=== PATIENT | male | born 1960 | race Caucasian/White ===

== ENCOUNTER 2021-09-22 02:58 | Inpatient (IN) | payer OTHER, SELFPAY ==
[2021-09-22] VITALS (8 sets, daily range): BP systolic 102–140; BP diastolic 57–75; PULSE 76–108; RESP 15–20; TEMP 35.8–37.7; O2SAT 93–98; BMI 25.8
--- NOTE | ~2021-09-22 | CT_ITS ---
EXAMINATION: CT ABDOMEN AND PELVIS WITH CONTRAST CLINICAL INFORMATION: Pain. Dysuria 3 weeks. COMPARISON: None TECHNIQUE: Multidetector volumetric images were obtained from the superior aspect of the liver through the pubic symphysis following administration 85 mL of Omnipaque 350 intravenous contrast. Sagittal and coronal reformatted images were obtained on the technologist's workstation. Oral contrast: No This CT examination was performed using dose optimization techniques as appropriate, variously including the following: *Automated exposure control *Adjustment of mA and/or kV according to patient size (this includes techniques or standardized protocols for targeted exams where dose is matched to indication/reason for exam; i.e. extremities or head) *Use of iterative reconstruction technique DLP: 554 mGy-cm FINDINGS: LUNG BASES: The visualized lung bases are unremarkable. LIVER, GALLBLADDER, AND BILIARY TREE: The liver is normal in size, shape, and attenuation. No focal hepatic lesion or biliary ductal dilatation is present. Gallbladder unremarkable. PANCREAS: Unremarkable. SPLEEN: Unremarkable. ADRENAL GLANDS: Unremarkable. KIDNEYS AND URETERS: The kidneys are normal in size, shape, and attenuation. There is a 5.3 cm simple cyst which is benign and requires no further follow-up. No hydronephrosis, hydroureter, or calculi seen. No perinephric stranding. BLADDER: Unremarkable. GASTROINTESTINAL TRACT: Small sliding-type hiatal hernia. The small and large bowel are unremarkable. The appendix is unremarkable. ABDOMINAL WALL: Small fat-containing umbilical hernia. Small bilateral fat-containing direct hernias, more pronounced on the left. LYMPH NODES: Normal. VASCULAR: Unremarkable. PELVIC VISCERA: Prostate is moderately enlarged measuring up to 5.3 cm transversely. There is fat stranding about the prostate and seminal vesicles (see mena images). OSSEOUS STRUCTURES: No acute or suspicious osseous abnormalities. CT/CT abdomen pelvis w con IMPRESSION: * There are are mild inflammatory changes about the prostate and seminal vesicles suggestive of prostatitis. * Moderate prostatomegaly.
[2021-09-22 03:32] LABS: Appearance Urine HAZY; Glucose Urine UA NEG (NEG); Leukocyte Esterase Urine 3+ (NEG); Nitrite Urine POS (NEG); PH 5.5 (5.0-8.0); UACC Culture Trigger YES; Urine Blood TRACE (NEG); Urine Ketones NEG (NEG); Urine Protein 1+ MG/DL (NEG-TRACE)
[2021-09-22 03:33] LABS: Color Urine ORANGE
[2021-09-22 03:39] LABS: Bacteria Urine 4+ /LPF; Mucus Urine 2+ /LPF; Squamous Epithelial Cell Urine 1+ /LPF
[2021-09-22 03:47] LABS: COVID-19 Test Negative (Negative); IDNOW Serial# 16C4AD1C; Influenza A Negative (Negative); Influenza B2 Negative (Negative)
[2021-09-22 04:52] LABS: Basophils Percent Auto 0.2 % (0-2); Eosinophils Absolute Auto 0.1 X10*3/uL (0.0-0.4); Eosinophils Percent Auto 0.8 % (0-4); Hematocrit 32.8 % (42.0-52.0); Imm Gran Abs Auto 0.04 X10*3/uL (0.00-0.03); Imm Gran Pct Auto 0.3 % (0.0-0.4); Lymphocytes Absolute Auto 0.6 X10*3/uL (1.2-4.9); Lymphocytes Percent Auto 4.6 % (20-40); MANUAL DIFF FLAG SCAN; Mean Corpuscular HGB Conc 33.5 g/dl (31.0-36.0); Mean Corpuscular Hemoglobin 28.3 pg (27.0-33.0); Mean Corpuscular Volume 84.3 fL (80.0-98.0); Mean Platelet Volume 9.9 fL (9.4-12.4); Monocytes Absolute Auto 0.4 X10*3/uL (0.1-1.2); Neutrophils Absolute Auto 11.4 x10*3/uL (2.0-8.3); Neutrophils Percent Auto 91.1 % (45-73); Platelet Count 297 X10*3/uL (160-400); Red Blood Count 3.89 X10*6/uL (4.60-5.80); Red Cell Distribution Width 14.6 % (11.0-16.0); SCAN SMEAR FLAG 1; White Blood Count 12.5 X10*3/uL (4.8-10.8)
[2021-09-22 04:55] LABS: SLIDE REVIEW VERIFIED
--- NOTE | 2021-09-22 04:57 | ED_ITS ---
HPI - Male Genitourinary General Chief complaint: Urogenital-Male Stated complaint: not sleeping well, fatigue Time Seen by Provider: 09/22/21 04:03 Source: patient and family ( ) Mode of arrival: ambulatory History of Present Illness HPI Narrative: 61-year-old male with history and clinical presentation dysuria for approximately 3 weeks after patient had a Harris catheter placed. Patient has been on 3 different medications without complete resolution and has once again developed fever with T-max of 102 degrees as well as chills and nausea and continued dysuria. Related Data Allergies Allergy/AdvReac Type Severity Reaction Status Date / Time No Known Allergies Allergy Verified 09/22/21 03:28 Review of Systems Review of Systems: Pertinent positives and negatives as stated in HPI 10 point review of systems is otherwise negative PMFSH Past Medical History Source: nursing notes reviewed Physical Exam Vital Signs: Vital Signs: Last Vital Signs Temp 96.5 F L 09/22/21 03:29 Pulse 108 H 09/22/21 03:29 Resp 20 09/22/21 03:29 BP 138/70 09/22/21 03:29 Pulse Ox 98 09/22/21 03:29 O2 Del Method 09/22/21 03:29 BMI result Body Mass Index 25.8 VITAL SIGNS: Reviewed. GENERAL: Well developed, well nourished, in no acute distress. HEAD: Normocephalic/atraumatic EYES: PERRLA, EOMI EARS: Ext canals without abnormality OROPHARYNX: no oral lesions noted, posterior pharynx clear LUNGS: Normal breath sounds. No adventitious sounds or accessory muscle use. SpO2<98> CARDIOVASCULAR: Regular rate and rhythm without noted murmurs ABDOMEN: Soft, non-tender, non-distended with bowel sounds, no CVA tenderness. MUSCULOSKELETAL: No tenderness, deformities, or effusions noted on gross inspection. EXTREMITIES: No cyanosis, clubbing or edema. SKIN: Inspection of the skin reveals no rashes NEUROLOGIC: Alert and oriented x 4. Strength and sensation to light touch were grossly intact x 4. Course Course Course Narrative: 0445: I suspect infection. 61-year-old male with history and clinical present ation consistent with clinical diagnosis of pyelonephritis, and has been on 3 different medications and attempt to eradicate the urinary tract infection without success. on review of all investigations patient's urine is infected, he has a leukocytosis, he is experiencing chills and will receive IV fluids, antiemetic, antibiotics and be admitted. patient and were informed of all investigations. I discussed this case with the inpatient hospitalist who recommends CT scan but agrees with admission. MDM - Male Genitourinary Lab Data Result diagrams: 09/22/21 04:45 09/22/21 04:45 Labs: Lab Results 09/22/21 09/22/21 09/22/21 Range/Units 03:22 03:23 03:23 WBC (4.8-10.8) X10*3/uL RBC (4.60-5.80) X10*6/uL Hgb (14.0-18.0) g/dl Hct (42.0-52.0) % MCV (80.0-98.0) fL MCH (27.0-33.0) pg MCHC (31.0-36.0) g/dl RDW (11.0-16.0) % Plt Count (160-400) X10*3/uL MPV (9.4-12.4) fL Immature Gran % (Auto) (0.0-0.4) % Neut % (Auto) (45-73) % Lymph % (Auto) (20-40) % [place] % (Auto) (2-11) % Eos % (Auto) (0-4) % Baso % (Auto) (0-2) % Lymph # (Auto) (1.2-4.9) X10*3/uL [place] # (Auto) (0.1-1.2) X10*3/uL Eos # (Auto) (0.0-0.4) X10*3/uL Baso # (Auto) (0.0-0.2) X10*3/uL Abs Immat Gran (auto) (0.00-0.03) X10*3/uL Absolute Neuts (auto) (2.0-8.3) x10*3/uL Absolute Nucleated RBC (0.0-0.012) X10*3/uL Nucleated RBC % (auto) (0.0-0.2) /100WBC Smear Tech's Comments Sodium (135-145) mmol/L Potassium (3.3-5.1) mmol/L Chloride (96-108) mmol/L Carbon Dioxide (22-29) mmol/L Anion Gap (12-20) BUN (9-16) mg/dL Creatinine (0.5-1.4) mg/dL Estim Creat Clear Calc Estimated GFR Random Glucose (60-115) mg/dL Lactic Acid (0.5-2.0) mmol/L Calcium (8.4-10.2) mg/dL Total Bilirubin (0.0-1.0) mg/dL AST (5-37) U/L ALT (0-40) U/L Alkaline Phosphatase (39-117) U/L Total Protein (6.5-8.0) g/dL Albumin (3.5-5.0) g/dL Urine Color ORANGE A Urine Appearance HAZY Urine pH 5.5 (5.0-8.0) Ur Specific [place] 1.010 (1.005-1.025) Urine Protein 1+ H (NEG-TRACE) MG/DL Urine Glucose (UA) NEG (NEG) MG/DL Urine Ketones NEG (NEG) MG/DL Urine Blood TRACE (NEG) Urine Nitrite POS H (NEG) Ur Leukocyte Esterase 3+ H (NEG) Urine RBC 1-4 (0) /HPF Urine WBC 76-150 H (0-4) /HPF Ur Squamous Epith Cells 1+ /LPF Urine Bacteria 4+ /LPF Urine Mucus 2+ /LPF COVID-19 (YAMIL) Negative (Negative) COVID-19 Clin Com See Note Influenza Type A (WINNIE) Negative (Negative) Influenza Type B (WINNIE) Negative (Negative) Influenza A & B Note See Note 09/22/21 09/22/21 09/22/21 Range/Units 04:45 04:45 04:45 WBC 12.5 H (4.8-10.8) X10*3/uL RBC 3.89 L (4.60-5.80) X10*6/uL Hgb 11.0 L (14.0-18.0) g/dl Hct 32.8 L (42.0-52.0) % MCV 84.3 (80.0-98.0) fL MCH 28.3 (27.0-33.0) pg MCHC 33.5 (31.0-36.0) g/dl RDW 14.6 (11.0-16.0) % Plt Count 297 (160-400) X10*3/uL MPV 9.9 (9.4-12.4) fL Immature Gran % (Auto) 0.3 (0.0-0.4) % Neut % (Auto) 91.1 H (45-73) % Lymph % (Auto) 4.6 L (20-40) % [place] % (Auto) 3.0 (2-11) % Eos % (Auto) 0.8 (0-4) % Baso % (Auto) 0.2 (0-2) % Lymph # (Auto) 0.6 L (1.2-4.9) X10*3/uL [place] # (Auto) 0.4 (0.1-1.2) X10*3/uL Eos # (Auto) 0.1 (0.0-0.4) X10*3/uL Baso # (Auto) 0.0 (0.0-0.2) X10*3/uL Abs Immat Gran (auto) 0.04 H (0.00-0.03) X10*3/uL Absolute Neuts (auto) 11.4 H (2.0-8.3) x10*3/uL Absolute Nucleated RBC 0.000 (0.0-0.012) X10*3/uL Nucleated RBC % (auto) 0.0 (0.0-0.2) /100WBC Smear Tech's Comments VERIFIED Sodium 134 L (135-145) mmol/L Potassium 4.0 (3.3-5.1) mmol/L Chloride 102 (96-108) mmol/L Carbon Dioxide 22 (22-29) mmol/L Anion Gap 14 (12-20) BUN 13 (9-16) mg/dL Creatinine 1.16 (0.5-1.4) mg/dL Estim Creat Clear Calc 58.8 Estimated GFR > 60 Random Glucose 118 H (60-115) mg/dL Lactic Acid 1.3 (0.5-2.0) mmol/L Calcium 9.1 (8.4-10.2) mg/dL Total Bilirubin 1.2 H (0.0-1.0) mg/dL AST 19 (5-37) U/L ALT 22 (0-40) U/L Alkaline Phosphatase 156 H (39-117) U/L Total Protein 6.7 (6.5-8.0) g/dL Albumin 4.2 (3.5-5.0) g/dL Urine Color Urine Appearance Urine pH (5.0-8.0) Ur Specific [place] (1.005-1.025) Urine Protein (NEG-TRACE) MG/DL Urine Glucose (UA) (NEG) MG/DL Urine Ketones (NEG) MG/DL Urine Blood (NEG) Urine Nitrite (NEG) Ur Leukocyte Esterase (NEG) Urine RBC (0) /HPF Urine WBC (0-4) /HPF Ur Squamous Epith Cells /LPF Urine Bacteria /LPF Urine Mucus /LPF COVID-19 (YAMIL) (Negative) COVID-19 Clin Com Influenza Type A (WINNIE) (Negative) Influenza Type B (WINNIE) (Negative) Influenza A & B Note Discharge Plan Discharge Clinical Impression: Sepsis, Pyelonephritis Patient Disposition: Admitted As Inpatient
[2021-09-22 05:09] LABS: Lactic Acid 1.3 mmol/L (0.5-2.0)
[2021-09-22] MEDS: ondansetron HCL 4 MG/2 ML VIAL IVPUSH (05:09)
[2021-09-22] MEDS: 0.9 % Sodium Chloride 1,000 ML 999 ML IV (05:12)
[2021-09-22] MEDS: cefTRIAXone sodium 1 GM in 0.9 % Sodium Chloride 50 ML IV (05:12)
[2021-09-22 05:15] LABS: Alanine Aminotransferase 22 U/L (0-40); Albumin Level 4.2 g/dL (3.5-5.0); Alkaline Phosphatase 156 U/L (39-117); Anion Gap 14 (12-20); Aspartate Amino Transferase 19 U/L (5-37); Bilirubin Total 1.2 mg/dL (0.0-1.0); Blood Urea Nitrogen 13 mg/dL (9-16); Calcium 9.1 mg/dL (8.4-10.2); Carbon Dioxide 22 mmol/L (22-29); Chloride 102 mmol/L (96-108); Creatinine Clr Calc Pharmacy 58.8; Estimated Glomerular Filt Rate > 60; Glucose Random 118 mg/dL (60-115); Sodium 134 mmol/L (135-145); Total Protein 6.7 g/dL (6.5-8.0)
[2021-09-22] MEDS: Acetaminophen 325 MG TABLET 975 MG PO (05:22)
[2021-09-22] MEDS: iohexoL 350 MG/ML 100 ML INFUS..BTL IV (05:45)
--- NOTE | 2021-09-22 06:46 | PM.IMHP ---
History of Present Illness Date of Service: 09/22/21 Chief Complaint: burning on urinatuion 61-year-old male with past medical history of hyperlipidemia and BPH who presents to the hospital with complaints of urinary frequency as well as burning on urination. Patient reports that in August 14 he had a partial knee replacement for which she reported urinary catheter for urinary retention there was removed few days after surgery. He reports ever since removing the urinary catheter his started having pain and urination, he was initially treated with Bactrim on September 01, x 7 days, continued having symptoms therefore was switched to nitrofurantoin for 5 days based on cultures, with persistent symptoms, he was then changed to cefdroxil for 7 days which helped improve his symptoms significantly by day 7. He reports that the last abx improved his symptoms but once he finished his anbx his symptoms returned. He had a fever of 102 last night, with N/no vomiting. No CP, no SOB, no abd pain, no diarrhea, no constipation, no lower extremity edema. No headache or change in vision. on arrival to the ED patient found to have a temperature of 96.5 degrees, heart rate of 108, Labs are significant for WBC count of 12.5, hemoglobin of 11, hematocrit of today to any, sodium 134, UA positive for nitrites, leukocyte Estrace, and urine WBC Abdominal pelvic CT shows there are mild inflammatory changes prostate and seminal vesicles suggestive of prostatitis and moderate prostatomegaly Patient started on IV antibiotics and will be admitted for further management Review of Systems Review of Systems: Yes all other systems are reviewed and are negative [facility] Medical History (Updated 09/22/21 @ 07:04 by Reji Tomlinson MD) BPH (benign prostatic hyperplasia) HLD (hyperlipidemia) Family History (Updated 09/22/21 @ 07:04 by Reji Tomlinson MD) Other No family history of coronary artery disease Surgical History (Updated 09/22/21 @ 07:04 by Reji Tomlinson MD) History of knee surgery Social History Advance Directives: No Advance Directives Information Provided: Yes Meds Allergies Allergy/AdvReac Type Severity Reaction Status Date / Time No Known Allergies Allergy Verified 09/22/21 03:28 Active Medications: Current Medications Pharmacy Consult (Consult Rx Perform Med Rec) 1 each MISCELLANE ONCE PRN PRN Reason: Consult order Home Medications Medication Instructions Recorded Confirmed Last Taken Type atorvastatin 40 mg tablet 1 tab PO DAILY 09/22/21 09/22/21 Unknown History bupropion HCl 150 mg 24 hr tablet, 1 tab PO DAILY 09/22/21 09/22/21 Unknown History extended release bupropion HCl 300 mg 24 hr tablet, 1 tab PO DAILY 09/22/21 09/22/21 Unknown History extended release lorazepam 0.5 mg tablet 1 tab PO Q6H PRN anxiety 09/22/21 09/22/21 Unknown History omeprazole 20 mg capsule,delayed 2 cap PO BID 09/22/21 09/22/21 Unknown History release tamsulosin 0.4 mg capsule 2 cap PO BEDTIME 09/22/21 09/22/21 Unknown History Physical Exam Vital Signs and Narrative: Vital Signs: Last Vital Signs Temp 99.8 F 09/22/21 06:25 Pulse 86 09/22/21 06:25 Resp 15 09/22/21 06:25 BP 138/70 09/22/21 03:29 Pulse Ox 98 09/22/21 03:29 O2 Del Method 09/22/21 03:29 BMI result Body Mass Index 25.8 Results Labs CBC and Chem 7: 09/22/21 04:45 09/22/21 04:45 Labs: Laboratory Results - last 24 hr 09/22/21 09/22/21 09/22/21 03:22 03:23 03:23 MCV MCH MCHC RDW Plt Count MPV Immature Gran % (Auto) Neut % (Auto) Lymph % (Auto) [place] % (Auto) Eos % (Auto) Baso % (Auto) Lymph # (Auto) [place] # (Auto) Eos # (Auto) Baso # (Auto) Abs Immat Gran (auto) Absolute Neuts (auto) Absolute Nucleated RBC Nucleated RBC % (auto) Smear Tech's Comments Anion Gap Estim Creat Clear Calc Estimated GFR Random Glucose Lactic Acid Calcium Total Bilirubin AST ALT Alkaline Phosphatase Total Protein Albumin Urine Color ORANGE A Urine Appearance HAZY Urine pH 5.5 Ur Specific [place] 1.010 Urine Protein 1+ H Urine Glucose (UA) NEG Urine Ketones NEG Urine Blood TRACE Urine Nitrite POS H Ur Leukocyte Esterase 3+ H Urine RBC 1-4 Urine WBC 76-150 H Ur Squamous Epith Cells 1+ Urine Bacteria 4+ Urine Mucus 2+ COVID-19 (YAMIL) Negative COVID-19 Clin Com See Note Influenza Type A (WINNIE) Negative Influenza Type B (WINNIE) Negative Influenza A & B Note See Note 09/22/21 09/22/21 09/22/21 04:45 04:45 04:45 MCV 84.3 MCH 28.3 MCHC 33.5 RDW 14.6 Plt Count 297 MPV 9.9 Immature Gran % (Auto) 0.3 Neut % (Auto) 91.1 H Lymph % (Auto) 4.6 L [place] % (Auto) 3.0 Eos % (Auto) 0.8 Baso % (Auto) 0.2 Lymph # (Auto) 0.6 L [place] # (Auto) 0.4 Eos # (Auto) 0.1 Baso # (Auto) 0.0 Abs Immat Gran (auto) 0.04 H Absolute Neuts (auto) 11.4 H Absolute Nucleated RBC 0.000 Nucleated RBC % (auto) 0.0 Smear Tech's Comments VERIFIED Anion Gap 14 Estim Creat Clear Calc 58.8 Estimated GFR > 60 Random Glucose 118 H Lactic Acid 1.3 Calcium 9.1 Total Bilirubin 1.2 H AST 19 ALT 22 Alkaline Phosphatase 156 H Total Protein 6.7 Albumin 4.2 Urine Color Urine Appearance Urine pH Ur Specific [place] Urine Protein Urine Glucose (UA) Urine Ketones Urine Blood Urine Nitrite Ur Leukocyte Esterase Urine RBC Urine WBC Ur Squamous Epith Cells Urine Bacteria Urine Mucus COVID-19 (YAMIL) COVID-19 Clin Com Influenza Type A (WINNIE) Influenza Type B (WINNIE) Influenza A & B Note Imaging Radiologist's Impressions: Impressions Abdomen/Pelvis CT 09/22/21 05:50 IMPRESSION: * There are are mild inflammatory changes about the prostate and seminal vesicles suggestive of prostatitis. * Moderate prostatomegaly. Assessment and Plan (1) Prostatitis: Status: Acute Plan 61-year-old male with a history of BPH presents the hospital with urinary frequency and dysuria found to have prostatitis # prostatitis - failed outpatient therapy probably not because resistant but likely due to duration - will treat with levofloxacin IV pending cultures - IV fluids # BPH - continue Flomax - has no retention at this time # hyperlipidemia - continue statin DVT prophylaxis: Lovenox Given failed outpatient therapy time is 3 around patient will require a minimal tonight hospital stay for further management and treatment Quality Stroke Does the patient have a stroke diagnosis?: No VTE Prior VTE?: No VTE Risk Level:: Medical - moderate - high VTE Device Contraindication: Treatment Not Indicated VTE Drug Contraindication: N/A - Med Ordered
[2021-09-22] MEDS: Enoxaparin Sodium 40 MG/0.4 ML SYRINGE SUBCUT (07:18)
[2021-09-22] MEDS: levoFLOXacin/D5W 750 MG/150 ML PIGGYBACK 100 MG IV (07:26)
--- NOTE | 2021-09-22 07:29 | PHA.MEDREC ---
Pharmacy Consult ? Medication Reconciliation Pharmacy has reviewed the medication reconciliation completed by Dennys. There are no remarkble issues for provider's attention. Shanon ferreira, AdrainaD
--- NOTE | 2021-09-22 08:43 | HO.PM.IMPN ---
Subjective Subjective Date of Service: 09/22/21 Interval History: cc: fever, chills, dysuria, urinary frequency interval history: afebrile this morning, still with urinary frequency Cardiovascular Cardiovascular: Reports no additional cardiovascular complaints Respiratory Respiratory: Reports no additional respiratory complaints Physical Exam Vital Signs: Vital Signs: Last Vital Signs Temp 99.3 F 09/22/21 07:28 Pulse 100 09/22/21 07:15 Resp 16 09/22/21 07:15 BP 121/68 09/22/21 07:15 Pulse Ox 93 09/22/21 07:15 O2 Del Method 09/22/21 07:15 BMI result Body Mass Index 25.8 General: AO X 3, no acute distress Resp: CTA bilateral, no accessory muscles used CVS: S1,S2,RRR GI: soft, non tender, non distended Neuro: motor grossly intact, alert Psych: appropriate affect, appropriate insight left knee surgical site: some warmth, but no erythema, minimal edema, good ROM, appears to be healing well Objective Data Active Medications Acetaminophen (Acetaminophen 325 Mg Tablet) 650 mg PO Q6H PRN PRN Reason: Pain, Mild (Pain Scale 1-3) Atorvastatin Calcium (Atorvastatin Calcium 40 Mg Tablet) 40 mg PO DAILY [facility] Last Admin: 09/22/21 08:39 Dose: Not Given Documented By: LEBRON Non-Admin Reason: pt took own med Bupropion HCl (Bupropion Hcl Xl 300 Mg Tab.Er.24h) 300 mg PO DAILY [facility] Last Admin: 09/22/21 08:39 Dose: Not Given Documented By: LEBRON Non-Admin Reason: pt took own med Bupropion HCl (Bupropion Hcl Xl 150 Mg Tab.Er.24h) 150 mg PO DAILY [facility] Last Admin: 09/22/21 08:39 Dose: Not Given Documented By: LEBRON Non-Admin Reason: pt took own med Docusate Sodium (Docusate Sodium 100 Mg Capsule) 100 mg PO DAILY PRN PRN Reason: Constipation Enoxaparin Sodium (Enoxaparin Sodium 40 Mg/0.4 Ml Syringe) 40 mg SUBCUT Q24H [facility] Last Admin: 09/22/21 07:18 Dose: 40 mg Documented By: MARIBEL Levofloxacin (Levaquin) 750 mg in 150 mls @ 100 mls/hr IV Q24H [facility] Last Admin: 09/22/21 07:26 Dose: 100 mls/hr Documented By: MARIBEL Lorazepam (Lorazepam 0.5 Mg Tablet) 0.5 mg PO Q6H PRN PRN Reason: anxiety Omeprazole (Omeprazole 40 Mg Capsule.Dr) 40 mg PO BID@0630,1600 [facility] Last Admin: 09/22/21 08:39 Dose: Not Given Documented By: LEBRON Non-Admin Reason: pt took home med Ondansetron HCl (Ondansetron Hcl 4 Mg/2 Ml Vial) 4 mg IVPUSH Q8H PRN PRN Reason: Nausea and Vomiting Pharmacy Consult (Consult Rx Perform Med Rec) 1 each MISCELLANE ONCE PRN PRN Reason: Consult order Phenazopyridine HCl (Phenazopyridine Hcl 200 Mg Tablet) 200 mg PO TID PRN PRN Reason: dysuria Stop: 09/24/21 08:42 Sodium Chloride (0.9 % Sodium Chloride Flush 3 Ml Syringe) 3 ml IVFLUSH QSHIFT [facility] Last Admin: 09/22/21 07:18 Dose: Not Given Documented By: MARIBEL Non-Admin Reason: IV Running Tamsulosin HCl (Tamsulosin Hcl 0.4 Mg Capsule) 0.8 mg PO BEDTIME [facility] Labs CBC & Chem 7: 09/22/21 04:45 09/22/21 04:45 Labs: Laboratory Results - last 24 hr 09/22/21 09/22/21 09/22/21 03:22 03:23 03:23 MCV MCH MCHC RDW Plt Count MPV Immature Gran % (Auto) Neut % (Auto) Lymph % (Auto) [place] % (Auto) Eos % (Auto) Baso % (Auto) Lymph # (Auto) [place] # (Auto) Eos # (Auto) Baso # (Auto) Abs Immat Gran (auto) Absolute Neuts (auto) Absolute Nucleated RBC Nucleated RBC % (auto) Smear Tech's Comments Anion Gap Estim Creat Clear Calc Estimated GFR Random Glucose Lactic Acid Calcium Total Bilirubin AST ALT Alkaline Phosphatase Total Protein Albumin Urine Color ORANGE A Urine Appearance HAZY Urine pH 5.5 Ur Specific [place] 1.010 Urine Protein 1+ H Urine Glucose (UA) NEG Urine Ketones NEG Urine Blood TRACE Urine Nitrite POS H Ur Leukocyte Esterase 3+ H Urine RBC 1-4 Urine WBC 76-150 H Ur Squamous Epith Cells 1+ Urine Bacteria 4+ Urine Mucus 2+ COVID-19 (YAMIL) Negative COVID-19 Clin Com See Note Influenza Type A (WINNIE) Negative Influenza Type B (WINNIE) Negative Influenza A & B Note See Note 09/22/21 09/22/21 09/22/21 04:45 04:45 04:45 MCV 84.3 MCH 28.3 MCHC 33.5 RDW 14.6 Plt Count 297 MPV 9.9 Immature Gran % (Auto) 0.3 Neut % (Auto) 91.1 H Lymph % (Auto) 4.6 L [place] % (Auto) 3.0 Eos % (Auto) 0.8 Baso % (Auto) 0.2 Lymph # (Auto) 0.6 L [place] # (Auto) 0.4 Eos # (Auto) 0.1 Baso # (Auto) 0.0 Abs Immat Gran (auto) 0.04 H Absolute Neuts (auto) 11.4 H Absolute Nucleated RBC 0.000 Nucleated RBC % (auto) 0.0 Smear Tech's Comments VERIFIED Anion Gap 14 Estim Creat Clear Calc 58.8 Estimated GFR > 60 Random Glucose 118 H Lactic Acid 1.3 Calcium 9.1 Total Bilirubin 1.2 H AST 19 ALT 22 Alkaline Phosphatase 156 H Total Protein 6.7 Albumin 4.2 Urine Color Urine Appearance Urine pH Ur Specific [place] Urine Protein Urine Glucose (UA) Urine Ketones Urine Blood Urine Nitrite Ur Leukocyte Esterase Urine RBC Urine WBC Ur Squamous Epith Cells Urine Bacteria Urine Mucus COVID-19 (YAMIL) COVID-19 Clin Com Influenza Type A (WINNIE) Influenza Type B (WINNIE) Influenza A & B Note Assessment and Plan (1) Sepsis: Status: Acute (2) Prostatitis: Status: Acute Plan 61M presented with dysuria, fevers, chills sepsis (leukocytosis, tachycardia) due to acute prostatitis in patient with BPH urine culture from [facility] showed ecoli sensitive to levaquin continue IV levaquin, follow up urine and blood cultures once afebrile and cultures back would switch to po will likely need longer duration of therapy, about 14 days, preferably fluoroquinolone if sensitive continue flomax 0.8mg daily for BPH and follow up outpatient with urology pyridium prn GERD with burgos's esophagus continue omeprazole 40mg po bid hld lipitor mood disorder stable continue buproprion ativan prn dvt prophylaxis - lovenox full code reason for continued hospitalization: awaiting cultures and sensitivities as well as defervescence Quality Stroke Does the patient have a stroke diagnosis?: No VTE Prior VTE?: No VTE Risk Level:: Medical - moderate - high VTE Device Contraindication: Treatment Not Indicated VTE Drug Contraindication: N/A - Med Ordered
--- NOTE | 2021-09-22 09:02 | MHC.CM.PN ---
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 Home, self care is the goal and CM has initiated and will follow for dc planning. Patient has received [email or web address] vax X3 and the PCP is DR. Charles Campbell.
[2021-09-22] MEDS: Ibuprofen 400 MG TABLET PO ×2 (09:46→15:57)
[2021-09-22] MEDS: Phenazopyridine HCL 200 MG TABLET PO (09:47)
[2021-09-22] MEDS: Acetaminophen 325 MG TABLET 650 MG PO ×2 (11:19→17:53)
[2021-09-22] MEDS: 0.9 % Sodium Chloride Flush 3 ML SYRINGE IVFLUSH (15:55)
[2021-09-22] MEDS: Omeprazole 40 MG CAPSULE.DR PO (15:58)
[2021-09-22] MEDS: Tamsulosin HCL 0.4 MG CAPSULE 0.8 MG PO (20:58)
[2021-09-23] VITALS (7 sets, daily range): BP systolic 99–140; BP diastolic 58–76; PULSE 75–95; RESP 15–20; TEMP 36.1–37.5; O2SAT 95–97
[2021-09-23] MEDS: 0.9 % Sodium Chloride Flush 3 ML SYRINGE IVFLUSH ×4 (00:19→21:03)
[2021-09-23 06:10] LABS: MANUAL DIFF FLAG NO
[2021-09-23 06:16] LABS: Basophils Percent Auto 0.5 % (0-2); Eosinophils Percent Auto 0.2 % (0-4); Hematocrit 32.6 % (42.0-52.0); Hemoglobin 10.4 g/dl (14.0-18.0); Imm Gran Abs Auto 0.05 X10*3/uL (0.00-0.03); Imm Gran Pct Auto 0.8 % (0.0-0.4); Lymphocytes Absolute Auto 0.6 X10*3/uL (1.2-4.9); Lymphocytes Percent Auto 9.3 % (20-40); Mean Corpuscular HGB Conc 31.9 g/dl (31.0-36.0); Mean Corpuscular Hemoglobin 28.1 pg (27.0-33.0); Mean Corpuscular Volume 88.1 fL (80.0-98.0); Mean Platelet Volume 10.3 fL (9.4-12.4); Monocytes Absolute Auto 0.3 X10*3/uL (0.1-1.2); Monocytes Percent Auto 5.4 % (2-11); Neutrophils Percent Auto 83.8 % (45-73); Platelet Count 219 X10*3/uL (160-400); Red Cell Distribution Width 14.9 % (11.0-16.0); White Blood Count 5.9 X10*3/uL (4.8-10.8)
[2021-09-23] MEDS: Enoxaparin Sodium 40 MG/0.4 ML SYRINGE SUBCUT (06:27)
[2021-09-23] MEDS: Omeprazole 40 MG CAPSULE.DR PO ×2 (06:28→17:10)
[2021-09-23 06:48] LABS: Anion Gap 11 (12-20); Blood Urea Nitrogen 11 mg/dL (9-16); Calcium 8.4 mg/dL (8.4-10.2); Carbon Dioxide 24 mmol/L (22-29); Chloride 108 mmol/L (96-108); Creatinine Clr Calc Pharmacy 59.3; Estimated Glomerular Filt Rate > 60; Glucose Fasting 94 mg/dL (60-99); Potassium 4.2 mmol/L (3.3-5.1); Sodium 139 mmol/L (135-145)
[2021-09-23] MEDS: Atorvastatin Calcium 40 MG TABLET PO (08:52)
[2021-09-23] MEDS: levoFLOXacin/D5W 750 MG/150 ML PIGGYBACK 100 MG IV (08:52)
[2021-09-23] MEDS: buPROPion HCl XL 150 MG TAB.ER.24H PO (08:52)
[2021-09-23] MEDS: buPROPion HCl XL 300 MG TAB.ER.24H PO (08:52)
--- NOTE | 2021-09-23 14:49 | P.PNIM_ITS ---
Subjective Subjective Date of Service: 09/23/21 Interval History: complaining of persistent symptoms of pain/ discomfort, denies urinary burning or frequency, no fevers no chills nausea no vomiting tolerating diet, no acute events overnight. Review of Systems [employer] no headache no dizziness CVS no chest pain, no palpitation Review of Systems: Yes all other systems are reviewed and are negative Physical Exam Vital Signs: Vital Signs: Last Vital Signs Temp 96.9 F 09/23/21 11:28 Pulse 81 09/23/21 11:28 Resp 20 09/23/21 11:28 BP 129/71 09/23/21 11:28 Pulse Ox 97 09/23/21 11:28 O2 Del Method 09/23/21 11:28 BMI result Body Mass Index 25.8 Const: Other: General: AO X 3, n o acute distress N tamera no JVD Resp:? CTA bilateral, no accessory muscles used CVS: S1,S2,R RR GI: soft, non t richelle, bowel sound s audible, non dis tended Neuro:? mot or grossly intact, alert extremities no edema Psych: a ppropriate affect, appropriate insig ht? left knee surg ical site: no eryt fátima, minimal kam a, good ROM, appea rs to be healing w ell Objective Data Active Medications Acetaminophen (Acetaminophen 325 Mg Tablet) 650 mg PO Q6H PRN PRN Reason: Pain, Mild (Pain Scale 1-3) Last Admin: 09/22/21 17:53 Dose: 650 mg Documented By: MARIBEL Atorvastatin Calcium (Atorvastatin Calcium 40 Mg Tablet) 40 mg PO DAILY [facility] Last Admin: 09/23/21 08:52 Dose: 40 mg Documented By: JONELLE Bupropion HCl (Bupropion Hcl Xl 300 Mg Tab.Er.24h) 300 mg PO DAILY [facility] Last Admin: 09/23/21 08:52 Dose: 300 mg Documented By: JONELLE Bupropion HCl (Bupropion Hcl Xl 150 Mg Tab.Er.24h) 150 mg PO DAILY [facility] Last Admin: 09/23/21 08:52 Dose: 150 mg Documented By: JONELLE Docusate Sodium (Docusate Sodium 100 Mg Capsule) 100 mg PO DAILY PRN PRN Reason: Constipation Enoxaparin Sodium (Enoxaparin Sodium 40 Mg/0.4 Ml Syringe) 40 mg SUBCUT Q24H [facility] Last Admin: 09/23/21 06:27 Dose: 40 mg Documented By: EKATERINA Levofloxacin (Levaquin) 750 mg in 150 mls @ 100 mls/hr IV Q24H [facility] Last Infusion: 09/23/21 11:19 Dose: 0 mls/hr Documented By: JONELLE Ibuprofen (Ibuprofen 400 Mg Tablet) 400 mg PO Q6H PRN PRN Reason: moderate pain Last Admin: 09/22/21 15:57 Dose: 400 mg Documented By: MARIBEL Lorazepam (Lorazepam 0.5 Mg Tablet) 0.5 mg PO Q6H PRN PRN Reason: anxiety Omeprazole (Omeprazole 40 Mg Capsule.Dr) 40 mg PO BID@0630,1600 [facility] Last Admin: 09/23/21 06:28 Dose: 40 mg Documented By: EKATERINA Ondansetron HCl (Ondansetron Hcl 4 Mg/2 Ml Vial) 4 mg IVPUSH Q8H PRN PRN Reason: Nausea and Vomiting Pharmacy Consult (Consult Rx Perform Med Rec) 1 each MISCELLANE ONCE PRN PRN Reason: Consult order Phenazopyridine HCl (Phenazopyridine Hcl 200 Mg Tablet) 200 mg PO TID PRN PRN Reason: dysuria Stop: 09/24/21 08:42 Last Admin: 09/22/21 09:47 Dose: 200 mg Documented By: LEBRON Sodium Chloride (0.9 % Sodium Chloride Flush 3 Ml Syringe) 3 ml IVFLUSH QSHIFT [facility] Last Admin: 09/23/21 08:52 Dose: 3 ml Documented By: JONELLE Tamsulosin HCl (Tamsulosin Hcl 0.4 Mg Capsule) 0.8 mg PO BEDTIME [facility] Last Admin: 09/22/21 20:58 Dose: 0.8 mg Documented By: PARAS Labs CBC & Chem 7: 09/23/21 05:53 09/23/21 05:53 Labs: Laboratory Results - last 24 hr 09/23/21 09/23/21 05:53 05:53 MCV 88.1 MCH 28.1 MCHC 31.9 RDW 14.9 Plt Count 219 D MPV 10.3 Immature Gran % (Auto) 0.8 H Neut % (Auto) 83.8 H Lymph % (Auto) 9.3 L [place] % (Auto) 5.4 Eos % (Auto) 0.2 Baso % (Auto) 0.5 Lymph # (Auto) 0.6 L [place] # (Auto) 0.3 Eos # (Auto) 0.0 Baso # (Auto) 0.0 Abs Immat Gran (auto) 0.05 H Absolute Neuts (auto) 5.0 Absolute Nucleated RBC 0.000 Nucleated RBC % (auto) 0.0 Anion Gap 11 L Estim Creat Clear Calc 59.3 Estimated GFR > 60 Random Glucose TNP Fasting Glucose 94 Calcium 8.4 D Microbiology Microbiology Results: Microbiology 09/22/21 Unknown Urine Culture - Preliminary Urine clean catch - Urine marley top Gram negative torie 09/22/21 06:21 Blood Culture - Preliminary Blood - Venous No growth after 24 hours. 09/22/21 04:45 Blood Culture - Preliminary Blood - Venous No growth after 24 hours. Assessment and Plan (1) Sepsis: Status: Acute (2) Prostatitis: Status: Acute Plan 61M presented with dysuria, fevers, chills sepsis (leukocytosis, tachycardia) due to acute prostatitis in patient with BPH all sepsis symptoms resolved persistent localized prostate discomfort, denies urinary frequency , no fevers no chills urine culture from [facility] showed ecoli sensitive to levaquin continue IV levaquin, urine culture growing Gram-negative torie blood cultures x2 negative in 24 hrs once afebrile and cultures back would switch to po levaquin for 14 days, if sensitive, patient previously treated with 3 courses of antibiotic, symptoms were improving on antibiotics but antibiotic duration was for 7 days for Bactrim and cefdroxil and 5 days for nitofurantoin. continue flomax 0.8mg daily for BPH and follow up outpatient with urology pyridium prn GERD with burgos's esophagus continue omeprazole 40mg po bid hld continue lipitor mood disorder stable continue buproprion and ativan prn dvt prophylaxis - lovenox full code reason for continued hospitalization: awaiting cultures and sensitivities as well as defervescence Quality Stroke Does the patient have a stroke diagnosis?: No VTE Prior VTE?: No VTE Risk Level:: Medical - moderate - high VTE Device Contraindication: Treatment Not Indicated VTE Drug Contraindication: N/A - Med Ordered
[2021-09-23] MEDS: Tamsulosin HCL 0.4 MG CAPSULE 0.8 MG PO (17:10)
[2021-09-23] MEDS: LORazepam 0.5 MG TABLET PO (17:10)
[2021-09-24 04:00] VITALS: BP 149/81; PULSE 81; RESP 20; TEMP 36.8; O2SAT 98
[2021-09-24] MEDS: Phenazopyridine HCL 200 MG TABLET PO ×4 (05:28→22:33)
[2021-09-24] MEDS: Acetaminophen 325 MG TABLET 650 MG PO (05:29)
[2021-09-24] MEDS: Enoxaparin Sodium 40 MG/0.4 ML SYRINGE SUBCUT (05:30)
[2021-09-24] MEDS: Docusate Sodium 100 MG CAPSULE PO (05:33)
[2021-09-24 07:38] VITALS: BP 116/69; PULSE 75; RESP 20; TEMP 36.7; O2SAT 97
[2021-09-24] MEDS: buPROPion HCl XL 150 MG TAB.ER.24H PO (09:11)
[2021-09-24] MEDS: Omeprazole 40 MG CAPSULE.DR PO ×2 (09:11→17:17)
[2021-09-24] MEDS: LORazepam 0.5 MG TABLET PO ×2 (09:11→22:32)
[2021-09-24] MEDS: buPROPion HCl XL 300 MG TAB.ER.24H PO (09:11)
[2021-09-24] MEDS: 0.9 % Sodium Chloride Flush 3 ML SYRINGE IVFLUSH ×3 (09:11→22:34)
[2021-09-24] MEDS: Atorvastatin Calcium 40 MG TABLET PO (09:11)
[2021-09-24] MEDS: levoFLOXacin/D5W 750 MG/150 ML PIGGYBACK 100 MG IV (09:12)
--- NOTE | 2021-09-24 12:47 | HO.PM.IMPN ---
Subjective Subjective Date of Service: 09/24/21 Interval History: seen and examined this morning Follow-up for prostatitis Reports difficulty sleeping overnight due to dysuria and nausea Concerned that antibiotics are not working, concerned he has not seen urologist Review of Systems Review of Systems: Yes all other systems are reviewed and are negative Constitutional Constitutional: Denies chills and Denies fever(s) Cardiovascular Cardiovascular: Denies chest pain, Denies palpitations and Denies dyspnea Respiratory Respiratory: Denies cough and Denies dyspnea Gastrointestinal Gastrointestinal: Denies abdominal pain Genitourinary Genitourinary: Reports dysuria Endocrine Endocrine: Denies palpitations Physical Exam Vital Signs: Vital Signs: Last Vital Signs Temp 98.1 F 09/24/21 07:38 Pulse 75 09/24/21 07:38 Resp 20 09/24/21 07:38 BP 116/69 09/24/21 07:38 Pulse Ox 97 09/24/21 07:38 O2 Del Method 09/24/21 07:38 BMI result Body Mass Index 25.8 Const: General: cooperative, no acute distress, alert and awake Nutritional Appearance: average body habitus Orientation/consciousness: patient oriented x3 Resp: Effort & Inspection: normal respiratory effort and able to speak in complete sentences Auscultation: clear to auscultation bilaterally Cardio: Rate: regular rate Heart sounds: S1 normal heart sound present and S2 normal heart sound present GI: Inspection: No distended Palpation (GI): Soft to palpation and nontender Neuro: General: patient oriented x3 Extrem: General: Yes no pedal edema Objective Data Active Medications Acetaminophen (Acetaminophen 325 Mg Tablet) 650 mg PO Q6H PRN PRN Reason: Pain, Mild (Pain Scale 1-3) Last Admin: 09/24/21 05:29 Dose: 650 mg Documented By: TORRES Atorvastatin Calcium (Atorvastatin Calcium 40 Mg Tablet) 40 mg PO DAILY [facility] Last Admin: 09/24/21 09:11 Dose: 40 mg Documented By: WHITNEY Bupropion HCl (Bupropion Hcl Xl 300 Mg Tab.Er.24h) 300 mg PO DAILY [facility] Last Admin: 09/24/21 09:11 Dose: 300 mg Documented By: WHITNEY Bupropion HCl (Bupropion Hcl Xl 150 Mg Tab.Er.24h) 150 mg PO DAILY [facility] Last Admin: 09/24/21 09:11 Dose: 150 mg Documented By: WHITNEY Docusate Sodium (Docusate Sodium 100 Mg Capsule) 100 mg PO DAILY PRN PRN Reason: Constipation Last Admin: 09/24/21 05:33 Dose: 100 mg Documented By: TORRES Enoxaparin Sodium (Enoxaparin Sodium 40 Mg/0.4 Ml Syringe) 40 mg SUBCUT Q24H [facility] Last Admin: 09/24/21 05:30 Dose: 40 mg Documented By: TORRES Levofloxacin (Levaquin) 750 mg in 150 mls @ 100 mls/hr IV Q24H [facility] Last Infusion: 09/24/21 10:56 Dose: 0 mls/hr Documented By: WHITNEY Ibuprofen (Ibuprofen 400 Mg Tablet) 400 mg PO Q6H PRN PRN Reason: moderate pain Last Admin: 09/22/21 15:57 Dose: 400 mg Documented By: MARIBEL Lorazepam (Lorazepam 0.5 Mg Tablet) 0.5 mg PO Q6H PRN PRN Reason: anxiety Last Admin: 09/24/21 09:11 Dose: 0.5 mg Documented By: WHITNEY Omeprazole (Omeprazole 40 Mg Capsule.Dr) 40 mg PO BID@0630,1600 [facility] Last Admin: 09/24/21 09:11 Dose: 40 mg Documented By: WHITNEY Ondansetron HCl (Ondansetron Hcl 4 Mg/2 Ml Vial) 4 mg IVPUSH Q8H PRN PRN Reason: Nausea and Vomiting Pharmacy Consult (Consult Rx Perform Med Rec) 1 each MISCELLANE ONCE PRN PRN Reason: Consult order Phenazopyridine HCl (Phenazopyridine Hcl 200 Mg Tablet) 200 mg PO TID PRN PRN Reason: dysuria Stop: 09/26/21 10:32 Last Admin: 09/24/21 11:08 Dose: 200 mg Documented By: WHITNEY Sodium Chloride (0.9 % Sodium Chloride Flush 3 Ml Syringe) 3 ml IVFLUSH QSHIFT [facility] Last Admin: 09/24/21 09:11 Dose: 3 ml Documented By: WHITNEY Tamsulosin HCl (Tamsulosin Hcl 0.4 Mg Capsule) 0.8 mg PO BEDTIME [facility] Last Admin: 09/23/21 17:10 Dose: 0.8 mg Documented By: JONELLE Labs CBC & Chem 7: 09/23/21 05:53 09/23/21 05:53 Microbiology Microbiology Results: Microbiology 09/22/21 06:21 Blood Culture - Preliminary Blood - Venous No growth after 48 hours. 09/22/21 Unknown Urine Culture - Final Urine clean catch - Urine marley top Escherichia coli 09/22/21 04:45 Blood Culture - Preliminary Blood - Venous No growth after 48 hours. Assessment and Plan (1) Prostatitis: Status: Acute Plan 61M presented with dysuria, fevers, chills sepsis (leukocytosis, tachycardia) due to acute prostatitis in patient with BPH all sepsis symptoms resolved persistent localized prostate discomfort, denies urinary frequency , no fevers no chills urine culture from [facility] showed ecoli sensitive to levaquin continue IV levaquin, urine culture growing E coli.blood cultures x2 negative in 24 hrs once afebrile and cultures back would switch to po levaquin for 14 days, if sensitive, patient previously treated with 3 courses of antibiotic, symptoms were improving on antibiotics but antibiotic duration was for 7 days for Bactrim and cefdroxil and 5 days for nitofurantoin. continue flomax 0.8mg daily for BPH and follow up outpatient with urology pyridium prn - urology consult pending GERD with burgos's esophagus continue omeprazole 40mg po bid hld continue lipitor mood disorder stable continue buproprion and ativan prn dvt prophylaxis - lovenox full code attending-Dr. Coto reason for continued hospitalization: awaiting cultures and sensitivities Quality Stroke Does the patient have a stroke diagnosis?: No VTE Prior VTE?: No VTE Risk Level:: Medical - moderate - high VTE Device Contraindication: Treatment Not Indicated VTE Drug Contraindication: N/A - Med Ordered
[2021-09-24 15:19] VITALS: BP 131/78; PULSE 80; RESP 18; TEMP 36.4; O2SAT 95
[2021-09-24 19:35] VITALS: BP 144/76; PULSE 74; RESP 18; TEMP 36.4; O2SAT 96
[2021-09-24] MEDS: Tamsulosin HCL 0.4 MG CAPSULE 0.8 MG PO (19:39)
[2021-09-24] MEDS: diphenhydrAMINE HCL 50 MG/ML VIAL 25 MG IVPUSH (22:33)
[2021-09-24 23:58] VITALS: BP 118/68; PULSE 63; RESP 18; TEMP 36.6; O2SAT 96
[2021-09-25 04:00] VITALS: RESP 16
[2021-09-25 07:58] VITALS: BP 150/79; PULSE 76; RESP 18; TEMP 36.6; O2SAT 98
[2021-09-25] MEDS: Phenazopyridine HCL 200 MG TABLET PO (08:23)
[2021-09-25] MEDS: buPROPion HCl XL 300 MG TAB.ER.24H PO (08:23)
[2021-09-25] MEDS: buPROPion HCl XL 150 MG TAB.ER.24H PO (08:23)
[2021-09-25] MEDS: 0.9 % Sodium Chloride Flush 3 ML SYRINGE IVFLUSH (08:23)
[2021-09-25] MEDS: Omeprazole 40 MG CAPSULE.DR PO (08:23)
[2021-09-25] MEDS: levoFLOXacin/D5W 750 MG/150 ML PIGGYBACK 100 MG IV (08:24)
[2021-09-25] MEDS: Docusate Sodium 100 MG CAPSULE PO (08:26)
--- NOTE | 2021-09-25 09:49 | PM.DS ---
DS: Providers Provider Date of Service: 09/25/21 Date of admission: 09/22/21 06:45 Date of discharge: 09/25/21 Primary care physician: Charles Campbell MD Consults: 09/24/21 10:10 Consult to Urology Routine Consulting Provider: Reed Herrera Reason for consultation: prostatitis Has provider been notified: No Attending physician on discharge: Ayo Coto Discharging clinician: Mary Ann Livingston DS: Diagnosis Discharge Diagnosis (1) Prostatitis: Status: Acute DS: Summary Hospital Course Hospital Course: From H&P on day of admission 61-year-old male with past medical history of hyperlipidemia and BPH who presents to the hospital with complaints of urinary frequency as well as burning on urination.? Patient reports that in August 14 he had a partial knee replacement for which she reported urinary catheter for urinary retention there was removed few days after surgery.? He reports ever since removing the urinary catheter his started having pain and urination, he was initially treated with Bactrim on September 01, x 7 days, continued having symptoms therefore was switched to nitrofurantoin for 5 days based on cultures, with persistent symptoms, he was then changed to cefdroxil for 7 days which helped improve his symptoms significantly by day 7. He reports that the last abx improved his symptoms but once he finished his abx his symptoms returned. He had a fever of 102 last night, with N/no vomiting. No CP, no SOB, no abd pain, no diarrhea, no constipation, no lower extremity edema. No headache or change in vision. on arrival to the ED patient found to have a temperature of 96.5 degrees, heart rate of 108, Labs are significant for WBC count of 12.5, hemoglobin of 11, hematocrit of today to any, sodium 134, UA positive for nitrites, leukocyte Estrace, and urine WBC Abdominal pelvic CT shows there are mild inflammatory changes prostate and seminal vesicles suggestive of prostatitis and moderate prostatomegaly Patient started on IV antibiotics and will be admitted for further management Sepsis secondary to prostatitis with underlying BPH. Patient initially met sepsis criteria with leukocytosis and tachycardia. He was started on IV levofloxacin. Urine cultures grew E coli sensitive to levofloxacin. Blood cultures have remained negative to date. Patient has remained afebrile, leukocytosis resolved. Patient continues to have intermittent dysuria. He was seen by Urology and pain may take some time to resolve completely. Patient will complete 14 day course of levaquin and should follow up with urology as outpatient. Time Spent with Patient Time attestation: Total time spent providing and/or coordinating discharge services: Discharge coordination time: Greater than 30 minutes Quality: Safe Use of Opioids Does Pt have an Active Cancer Diagnosis on the Problem List?: No Quality: Stroke Does the patient have a stroke diagnosis?: No Physical Exam Vital Signs: Vital Signs: Last Vital Signs Temp 97.9 F 09/25/21 07:58 Pulse 76 09/25/21 07:58 Resp 18 09/25/21 07:58 BP 150/79 H 09/25/21 07:58 Pulse Ox 98 09/25/21 07:58 O2 Del Method 09/25/21 07:58 BMI result Body Mass Index 25.8 Const: General: cooperative, comfortable, alert and awake Nutritional Appearance: average body habitus Orientation/consciousness: patient oriented x3 Resp: Effort & Inspection: normal respiratory effort and able to speak in complete sentences Cardio: Rate: regular rate GI: Inspection: No distended Palpation (GI): Soft to palpation and nontender Neuro: General: patient oriented x3 Extrem: General: Yes no pedal edema DS: Data Data Completed and Pending Labs on day of discharge: Preliminary micro results at discharge 09/22/21 06:21 Blood Culture - Preliminary Blood - Venous No growth after 48 hours. 09/22/21 04:45 Blood Culture - Preliminary Blood - Venous No growth after 48 hours. Discharge Plan Discharge Patient Disposition: Home, Self-Care Discharge Diagnosis: Prostatitis Referrals: Reed Herrera MD [Physician] - 2 Weeks Charles Campbell MD [Primary Care Provider] - 1 Week Discharge Medications: New levofloxacin 750 mg tablet 750 mg PO DAILY 11 Days Qty: 11 0RF Continued atorvastatin 40 mg tablet 1 tab PO DAILY lorazepam 0.5 mg tablet 1 tab PO Q6H PRN (Reason: anxiety) tamsulosin 0.4 mg capsule 2 cap PO BEDTIME omeprazole 20 mg capsule,delayed release(DR/EC) 2 cap PO BID bupropion HCl 300 mg tablet extended release 24 hr 1 tab PO DAILY bupropion HCl 150 mg tablet extended release 24 hr 1 tab PO DAILY Discharge Orders: Discharge Order (Routine); Ordered 09/25/21 Ordered By: Mary Ann Livingston Activity on Discharge: As tolerated Stand Alone Forms: Patient Portal Discharge page Care Plan Goals: Resolution of infection Health Concerns: Prostatitis Plan of Treatment: Complete full course of antibiotics as prescribed Call to schedule follow-up appointment with Urology Assessment: See discharge summary Discharge Date/Time: 09/25/21 11:52
--- NOTE | 2021-09-25 10:05 | P.CNUR_ITS ---
History of Present Illness Consult details Consult date: 09/25/21 Narrative: Consulting complaint prostatitis Lonnie is a pleasant male. Admitted to hospital with persistent pelvic discomfort and pain and fever Had been treated for prostatitis with Bactrim and Keflex Treatment had only been 7 days each time Started on IV Levaquin and has had fever resolution No prior prostatitis episodes Labs - WBC 12.5 at admission Recommend initiating anti-inflammatories q.12 with adequate alpha-aliza to assist with bladder emptying Follow-up 2 weeks for possible Microgen analysis Review of Systems Constitutional: Constitutional: Reports as per HPI and Reports no additional constitutional complaints Cardiovascular: Cardiovascular: Reports as per HPI and Reports no additional cardiovascular complaints Respiratory: Respiratory: Reports as per HPI and Reports no additional respiratory complaints Gastrointestinal: Gastrointestinal: Reports as per HPI and Reports no additional gastrointestinal complaints Genitourinary: Genitourinary: Reports as per HPI Musculoskeletal: Musculoskeletal: Reports no additional musculoskeletal complaints and Reports as per HPI Neurologic: Reports system reviewed and no additional complaints, except as documented and Reports as per HPI [facility] Past Medical History Medical History (Updated 09/22/21 @ 07:26 by Abdi Solano MD) Barretts esophagus BPH (benign prostatic hyperplasia) GERD (gastroesophageal reflux disease) Hepatic steatosis HLD (hyperlipidemia) Family History Family History (Updated 09/22/21 @ 07:04 by Reji Tomlinson MD) Other No family history of coronary artery disease Surgical History Surgical History (Updated 09/22/21 @ 07:26 by Abdi Solano MD) History of arthroplasty of left knee (~07/2021) Social History Social History Household Members: Spouse Housing: House Do you presently have visiting nurse or other home services: No Patient Tobacco Use Status: Never used Tobacco e-Cigarette/Vaping Use: Never Used service: No Current occupational status: employed Meds Allergies Allergy/AdvReac Type Severity Reaction Status Date / Time No Known Allergies Allergy Verified 09/22/21 03:28 Active Medications: Current Medications Acetaminophen (Acetaminophen 325 Mg Tablet) 650 mg PO Q6H PRN PRN Reason: Pain, Mild (Pain Scale 1-3) Last Admin: 09/24/21 05:29 Dose: 650 mg Atorvastatin Calcium (Atorvastatin Calcium 40 Mg Tablet) 40 mg PO DAILY [facility] Last Admin: 09/24/21 09:11 Dose: 40 mg Bupropion HCl (Bupropion Hcl Xl 300 Mg Tab.Er.24h) 300 mg PO DAILY [facility] Last Admin: 09/25/21 08:23 Dose: 300 mg Bupropion HCl (Bupropion Hcl Xl 150 Mg Tab.Er.24h) 150 mg PO DAILY [facility] Last Admin: 09/25/21 08:23 Dose: 150 mg Docusate Sodium (Docusate Sodium 100 Mg Capsule) 100 mg PO DAILY PRN PRN Reason: Constipation Last Admin: 09/25/21 08:26 Dose: 100 mg Enoxaparin Sodium (Enoxaparin Sodium 40 Mg/0.4 Ml Syringe) 40 mg SUBCUT Q24H [facility] Last Admin: 09/25/21 08:23 Dose: Not Given Levofloxacin (Levaquin) 750 mg in 150 mls @ 100 mls/hr IV Q24H [facility] Last Admin: 09/25/21 08:24 Dose: 100 mls/hr Ibuprofen (Ibuprofen 400 Mg Tablet) 400 mg PO Q6H PRN PRN Reason: moderate pain Last Admin: 09/22/21 15:57 Dose: 400 mg Lorazepam (Lorazepam 0.5 Mg Tablet) 0.5 mg PO Q6H PRN PRN Reason: anxiety Last Admin: 09/24/21 22:32 Dose: 0.5 mg Omeprazole (Omeprazole 40 Mg Capsule.Dr) 40 mg PO BID@0630,1600 [facility] Last Admin: 09/25/21 08:23 Dose: 40 mg Ondansetron HCl (Ondansetron Hcl 4 Mg/2 Ml Vial) 4 mg IVPUSH Q8H PRN PRN Reason: Nausea and Vomiting Pharmacy Consult (Consult Rx Perform Med Rec) 1 each MISCELLANE ONCE PRN PRN Reason: Consult order Phenazopyridine HCl (Phenazopyridine Hcl 200 Mg Tablet) 200 mg PO TID PRN PRN Reason: dysuria Stop: 09/26/21 10:32 Last Admin: 09/25/21 08:23 Dose: 200 mg Sodium Chloride (0.9 % Sodium Chloride Flush 3 Ml Syringe) 3 ml IVFLUSH QSHIFT [facility] Last Admin: 09/25/21 08:23 Dose: 3 ml Tamsulosin HCl (Tamsulosin Hcl 0.4 Mg Capsule) 0.8 mg PO BEDTIME [facility] Last Admin: 09/24/21 19:39 Dose: 0.8 mg Home Medications Medication Instructions Recorded Confirmed Last Taken Type atorvastatin 40 mg tablet 1 tab PO DAILY 09/22/21 09/22/21 Unknown History bupropion HCl 150 mg 24 hr tablet, 1 tab PO DAILY 09/22/21 09/22/21 Unknown History extended release bupropion HCl 300 mg 24 hr tablet, 1 tab PO DAILY 09/22/21 09/22/21 Unknown History extended release lorazepam 0.5 mg tablet 1 tab PO Q6H PRN anxiety 09/22/21 09/22/21 Unknown History omeprazole 20 mg capsule,delayed 2 cap PO BID 09/22/21 09/22/21 Unknown History release tamsulosin 0.4 mg capsule 2 cap PO BEDTIME 09/22/21 09/22/21 Unknown History Physical Exam Vital Signs: Vital Signs: Last Vital Signs Temp 97.9 F 09/25/21 07:58 Pulse 76 09/25/21 07:58 Resp 18 09/25/21 07:58 BP 150/79 H 09/25/21 07:58 Pulse Ox 98 09/25/21 07:58 O2 Del Method 09/25/21 07:58 BMI result Body Mass Index 25.8 Const: General: cooperative, healthy appearing, comfortable and no acute distress Orientation/consciousness: patient oriented x3 HEENT: Face and sinus: Yes normal facial exam Mouth: moist mucous membranes Neck: Neck: Yes normal visual inspection, Yes full ROM and Yes trachea midline Chest: Chest palpation & inspection: normal inspection of the chest Resp: Effort & Inspection: normal respiratory effort, able to speak in complete sentences and no respiratory distress GI: Inspection: Yes normal to inspection Back/Spine/Pelvis: Cervical Spine: normal cervical lordosis Thoracic/Lumbar Spine: thoracic and lumbar spine normal to inspection Skin: General skin exam: no rashes or lesions noted Neuro: General: patient oriented x3, tone normal and moves all extremities Extrem: General: Yes normal to inspection and Yes capillary refill normal Results Labs Result diagrams: 09/23/21 05:53 09/23/21 05:53 Labs: Urine 09/22/21 Range/Units 03:22 Urine Color ORANGE A Urine Appearance HAZY Urine pH 5.5 (5.0-8.0) Ur Specific [place] 1.010 (1.005-1.025) Urine Protein 1+ H (NEG-TRACE) MG/DL Urine Glucose (UA) NEG (NEG) MG/DL All other labs normal. Assessment and Plan (1) Prostatitis: Status: Acute Plan Two week follow-up Procedures Date of Service Date of Service: 09/25/21
--- NOTE | 2021-09-25 11:07 | MHC.CM.PN ---
Patient has been medically cleared for dc to home today, self care.
== END 2021-09-25 11:52 | disposition home or self-care (01) | DRG 728 ==
LOC: HO.ED 05:49 → HO.EDOVER 06:56 → HO.IMC 21:00
PROVIDERS: Internal Medicine; Admitting Provider Internal Medicine; Emergency Provider Student in an Organized Health Care Education/Training Program; PCP Internal Medicine Endocrinology, Diabetes & Metabolism; Visit Provider Physician Assistant Medical
DX: N41.0 Acute prostatitis (principal); N40.0 Benign prostatic hyperplasia without lower urinary tract symptoms; B96.20 Unspecified Escherichia coli [E. coli] as the cause of diseases classified elsewhere; F39 Unspecified mood [affective] disorder; K21.9 Gastro-esophageal reflux disease without esophagitis; E78.5 Hyperlipidemia, unspecified; K76.0 Fatty (change of) liver, not elsewhere classified; Z20.822 Contact with and (suspected) exposure to COVID-19; Z96.652 Presence of left artificial knee joint; Z79.899 Other long term (current) drug therapy
CPT/HCPCS: 36415; 74177; 80048; 80053; 81001; 83605; 85025; 87040; 87086; 87088; 87186; 87502; 87635; 96361; 96365; 96375; 99285; J0696; J1200; J1650; J1956; J2405; Q9967

== ENCOUNTER 2023-01-06 10:02 | Outpatient (AMB) | payer OTHER, SELFPAY ==
--- NOTE | 2023-01-06 10:11 | A.OFFVIS_ITS ---
Intake Intake Visit Reasons: follow up/prostatitis Intake Note: Patient is Present for Follow Up Prostatitis Urology Medication:Oxybutynin, Tamsulosin Antibiotic Allergies:None Blood Thinners:None Allergies No Known Allergies Allergy (Verified 01/06/23 10:14) HPI HPI Comments History of Present Illness Details Lonnie is a pleasant male. He is a patient of Dr Campbell. He is seen for the following urologic conditions - prostatitis Prostatitis feels well-controlled Completed doxycycline course Trial of linezolid led to mood exacerbation Does feel his prostate is improving for 1st time in months of a prior 2 days Will review in a week and a half Prostatitis Hospital admission prostatitis August 2021 Treated with Levaquin for 2 weeks Microgen 10/19 - Bacterial load low - Corynebacterium sensitive to doxycycli ne [facility] Medical History GERD (gastroesophageal reflux disease) Hepatic steatosis Barretts esophagus HLD (hyperlipidemia) BPH (benign prostatic hyperplasia) Surgical History History of arthroplasty of left knee (~07/2021) Family History Other No family history of coronary artery disease Social History Household Members: Spouse Housing: House Do you presently have visiting nurse or other home services: No Patient Tobacco Use Status: Never used Tobacco e-Cigarette/Vaping Use: Never Used service: No Current occupational status: employed Review of Systems Const Denies chills and Denies fever(s) Card Reports no additional complaints and Denies syncope Resp Denies cough GI Denies abdominal pain and Denies heartburn Reports as per HPI and Denies change in libido Neuro Denies syncope Psych Denies change in libido Endo Denies change in libido Physical Exam Const General: cooperative, healthy appearing, comfortable and no acute distress Orientation/consciousness: patient oriented x3 HEENT Face and sinus: Yes normal facial exam Mouth: moist mucous membranes Neck Neck: Yes normal visual inspection, Yes full ROM and Yes trachea midline Chest Chest palpation & inspection: normal inspection of the chest Resp Effort & Inspection: normal respiratory effort, able to speak in complete sentences and no respiratory distress GI Inspection: Yes normal to inspection Back/Spine/Pelvis Cervical Spine: normal cervical lordosis Thoracic/Lumbar Spine: thoracic and lumbar spine normal to inspection Skin General skin exam: no rashes or lesions noted Neuro General: patient oriented x3, gait normal, tone normal and moves all extremities Extrem General: Yes normal to inspection and Yes capillary refill normal Assessment & Plan Assessment & Plan (1) Prostatitis: Code(s): N41.9 - Inflammatory disease of prostate, unspecified Plan Six month follow-up Orders: Orders PSA,Total (Free>4and<10) 6 Months N41.9 - Inflammatory disease of prostate, unspecified Medications: New finasteride 5 mg PO DAILY 90 tabs 1RF 90 days N41.9 - Inflammatory disease of prostate, unspecified, N40.1 - Benign prostatic hyperplasia with lower urinary tract symptoms, N13.8 - Other obstructive and reflux uropathy, R33.9 - Retention of urine, unspecified Patient Instructions: Imaging studies, laboratory and physical exam results were discussed and reviewed in detail. No major barriers to patient understanding were identified. An opportunity to ask questions regarding the treatment plan was provided. All questions were answered. The patient expressed understanding and agreement with the above treatment plan. The patient is aware they should contact our office by phone for worsening of their current condition or the appearance of new urologic symptoms. Compliance is encouraged with any medications and followup testing that is ordered. It is a privilege to participate in the urologic care of your patient. If you have any questions or concerns regarding treatment for the above conditions, or other urologic issues, please do not hesitate to contact me. The office telephone contact is [phone]. This note is constructed using voice recognition software. While every effort has been made to ensure accuracy floor tech errors may have been included. Yours sincerely, Dr Reed Herrera MD, [facility] - Urology Providers of Expert, Compassionate Care for the Genitourinary System Coding Level of Care Code Est Pt Level 3 (70430) Diagnoses Prostatitis N41.9
== END 2023-01-06 11:27 | disposition home or self-care (01) ==
PROVIDERS: PCP Internal Medicine Endocrinology, Diabetes & Metabolism; Visit Provider Urology
DX: N41.9 Inflammatory disease of prostate, unspecified (principal)
CPT/HCPCS: 99213

== ENCOUNTER → 2023-01-06 10:02 | Outpatient (BNVA) | payer OTHER, SELFPAY | PROVIDERS: PCP Internal Medicine Endocrinology, Diabetes & Metabolism; Visit Provider Urology ==

== ENCOUNTER 2023-07-04 12:35 | Outpatient (REF) | payer OTHER, SELFPAY ==
[2023-07-04 15:12] LABS: Prostate Specific Antigen 8.64 ng/mL (<0.05-4.0)
== END 2023-07-04 12:36 | disposition home or self-care (01) ==
LOC: HO.LAB 12:35
PROVIDERS: PCP Internal Medicine Endocrinology, Diabetes & Metabolism; Visit Provider Urology
DX: Z12.5 Encounter for screening for malignant neoplasm of prostate (principal); N41.9 Inflammatory disease of prostate, unspecified
CPT/HCPCS: 36415; 84153

== ENCOUNTER 2023-07-08 08:36 | Outpatient (AMB) | payer OTHER, SELFPAY ==
--- NOTE | 2023-07-08 08:41 | MHC.OFFVIS ---
Intake Visit Reasons: 6m/PSA(PSA?) Intake Note: Patient is Present for Follow Up Urology Medication: Finasteride, Tamsulosin Antibiotic Allergies: None Blood Thinners:Aspirin Allergies No Known Allergies Allergy (Verified 07/08/23 08:46) Medication List - Last Reconciled 07/08/23 by Reed Herrera MD aspirin (Adult Low Dose Aspirin) 81 mg PO DAILY atorvastatin 1 tab PO DAILY bupropion HCl XL 1 tab PO DAILY bupropion HCl XL 1 tab PO DAILY clonazepam mg PO finasteride 5 mg PO DAILY 90 days linezolid 600 mg PO BID 14 days lorazepam 1 tab PO Q6H PRN omeprazole 2 caps PO BID oxybutynin chloride 5 mg PO Q8H PRN tamsulosin 2 caps PO BEDTIME tamsulosin 0.8 mg (2 x 0.4 mg) PO BEDTIME 90 days HPI Comments Details: Lonnie is a pleasant male. He is a patient of Dr Campbell. He is seen for the following urologic conditions - prostatitis - elevated PSA Here for follow-up prostatitis Elevated PSA PSA 07/21 8.6 GENESIS 2+ soft Recommend repeat prostate MRI Elevated PSA Longstanding Previously in the teens Patient reports 2 prior negative biopsies Did have prostate MRI a number of years ago Prostatitis Hospital admission prostatitis August 2021 Treated with Levaquin for 2 weeks Molly 10/19 - Bacterial load low - Corynebacterium sensitive to doxycycline PFSH Medical History GERD (gastroesophageal reflux disease) Hepatic steatosis Barretts esophagus HLD (hyperlipidemia) BPH (benign prostatic hyperplasia) Surgical History History of arthroplasty of left knee (~07/2021) Family History Other No family history of coronary artery disease Social History Household Members: Spouse Housing: House Do you presently have visiting nurse or other home services: No Patient Tobacco Use Status: Never used Tobacco e-Cigarette/Vaping Use: Never Used service: No Current occupational status: employed Review of Systems Const Denies chills and Denies fever(s) Card Reports no additional complaints and Denies syncope Resp Denies cough GI Denies abdominal pain and Denies heartburn Reports as per HPI and Denies change in libido Neuro Denies syncope Psych Denies change in libido Endo Denies change in libido Physical Exam Const General: cooperative, healthy appearing, comfortable and no acute distress Orientation/consciousness: patient oriented x3 HEENT Face and sinus: Yes normal facial exam Mouth: moist mucous membranes Neck Neck: Yes normal visual inspection, Yes full ROM and Yes trachea midline Chest Chest palpation & inspection: normal inspection of the chest Resp Effort & Inspection: normal respiratory effort, able to speak in complete sentences and no respiratory distress GI Inspection: Yes normal to inspection Rectal Exam - Male: Yes normal sphincter tone and Yes prostate normal Male General Exam: Yes normal external exam Penis: normal penis and circumcised Meatus: meatus normal Scrotum: scrotum normal Testes: Testes normal Back/Spine/Pelvis Cervical Spine: normal cervical lordosis Thoracic/Lumbar Spine: thoracic and lumbar spine normal to inspection Skin General skin exam: no rashes or lesions noted Neuro General: patient oriented x3, gait normal, tone normal and moves all extremities Extrem General: Yes normal to inspection and Yes capillary refill normal Assessment & Plan Assessment & Plan (1) Elevated PSA: Code(s): R97.20 - Elevated prostate specific antigen [PSA] Category: Medical (2) Prostatitis: Code(s): N41.9 - Inflammatory disease of prostate, unspecified Category: Medical Plan Prostate MRI, three-month follow-up Orders: Orders Creatinine Today R97.20 - Elevated prostate specific antigen [PSA] Prostate Specific Antigen 07/04/23 N41.9 - Inflammatory disease of prostate, unspecified Blood Urea Nitrogen Today R97.20 - Elevated prostate specific antigen [PSA] MR pelvis wo/w con Today R97.20 - Elevated prostate specific antigen [PSA] Patient Instructions: Imaging studies, laboratory and physical exam results were discussed and reviewed in detail. No major barriers to patient understanding were identified. An opportunity to ask questions regarding the treatment plan was provided. All questions were answered. The patient expressed understanding and agreement with the above treatment plan. The patient is aware they should contact our office by phone for worsening of their current condition or the appearance of new urologic symptoms. Compliance is encouraged with any medications and followup testing that is ordered. It is a privilege to participate in the urologic care of your patient. If you have any questions or concerns regarding treatment for the above conditions, or other urologic issues, please do not hesitate to contact me. The office telephone contact is [phone]. This note is constructed using voice recognition software. While every effort has been made to ensure accuracy appraisal specialist errors may have been included. Yours sincerely, Dr Reed Herrera MD, [facility] - Urology Providers of Expert, Compassionate Care for the Genitourinary System Coding Level of Care Code Est Pt Level 4 (65057) Diagnoses Elevated PSA R97.20 Prostatitis N41.9
== END 2023-07-08 09:00 | disposition home or self-care (01) ==
PROVIDERS: PCP Internal Medicine Endocrinology, Diabetes & Metabolism; Visit Provider Urology
DX: R97.20 Elevated prostate specific antigen [PSA] (principal); N41.9 Inflammatory disease of prostate, unspecified
CPT/HCPCS: 99214

== ENCOUNTER → 2023-07-08 08:36 | Outpatient (BNVA) | payer OTHER, SELFPAY | PROVIDERS: PCP Internal Medicine Endocrinology, Diabetes & Metabolism; Visit Provider Urology | DX: N41.9 Inflammatory disease of prostate, unspecified (principal) ==

== ENCOUNTER 2023-10-12 08:43 | Outpatient (AMB) | payer OTHER, SELFPAY ==
--- NOTE | 2023-10-12 09:05 | A.OFFVIS_ITS ---
Intake Visit Reasons: 3M Follow Up-MRI(SET) Intake Note: Patient is present for MRI Prostate Follow Up Urology Med: Tamsulosin, Finasteride, Tadalafil Antibiotic Allergies: None Blood Thinner: Aspirin Rubber Cutter And Shape Carver Required: No Allergies No Known Allergies Allergy (Verified 10/12/23 09:10) HPI Comments Details: Lonnie is a pleasant male. He is a patient of Dr Campbell. He is seen for the following urologic conditions - prostatitis - elevated PSA Here for follow-up prostatitis Elevated PSA PSA 07/21 8.6 GENESIS 2+ soft Prostate MRI follow-up - 68 g prostate BPH whorls Six-month follow-up Elevated PSA Longstanding Previously in the teens Patient reports 2 prior negative biopsies Did have prostate MRI a number of years ago Prostatitis Hospital admission prostatitis August 2021 Treated with Levaquin for 2 weeks Microgen 10/19 - Bacterial load low - Corynebacterium sensitive to doxycycline PFSH Medical History GERD (gastroesophageal reflux disease) Hepatic steatosis Barretts esophagus HLD (hyperlipidemia) BPH (benign prostatic hyperplasia) Surgical History History of arthroplasty of left knee (~07/2021) Family History Other No family history of coronary artery disease Social History Household Members: Spouse Housing: House Do you presently have visiting nurse or other home services: No Patient Tobacco Use Status: Never used Tobacco e-Cigarette/Vaping Use: Never Used service: No Current occupational status: employed Review of Systems Const Denies chills and Denies fever(s) Card Reports no additional complaints and Denies syncope Resp Denies cough GI Denies abdominal pain and Denies heartburn Reports as per HPI and Denies change in libido Neuro Denies syncope Psych Denies change in libido Endo Denies change in libido Physical Exam Const General: cooperative, healthy appearing, comfortable and no acute distress Orientation/consciousness: patient oriented x3 HEENT Face and sinus: Yes normal facial exam Mouth: moist mucous membranes Neck Neck: Yes normal visual inspection, Yes full ROM and Yes trachea midline Chest Chest palpation & inspection: normal inspection of the chest Resp Effort & Inspection: normal respiratory effort, able to speak in complete sentences and no respiratory distress GI Inspection: Yes normal to inspection Back/Spine/Pelvis Cervical Spine: normal cervical lordosis Thoracic/Lumbar Spine: thoracic and lumbar spine normal to inspection Skin General skin exam: no rashes or lesions noted Neuro General: patient oriented x3, gait normal, tone normal and moves all extremities Extrem General: Yes normal to inspection and Yes capillary refill normal Assessment & Plan Assessment & Plan (1) Prostatitis: Code(s): N41.9 - Inflammatory disease of prostate, unspecified Category: Medical (2) Elevated PSA: Code(s): R97.20 - Elevated prostate specific antigen [PSA] Category: Medical Plan Six-month follow up PSA Orders: Orders Prostate Specific Antigen 6 Months R97.20 - Elevated prostate specific antigen [PSA] Patient Instructions: Imaging studies, laboratory and physical exam results were discussed and reviewed in detail. No major barriers to patient understanding were identified. An opportunity to ask questions regarding the treatment plan was provided. All questions were answered. The patient expressed understanding and agreement with the above treatment plan. The patient is aware they should contact our office by phone for worsening of their current condition or the appearance of new urologic symptoms. Compliance is encouraged with any medications and followup testing that is ordered. It is a privilege to participate in the urologic care of your patient. If you have any questions or concerns regarding treatment for the above conditions, or other urologic issues, please do not hesitate to contact me. The office tele phone contact is [phone]. This note is constructed using voice recognition software. While every effort has been made to ensure accuracy structural steel erection supervisor errors may have been included. Yours sincerely, Dr Reed Herrera MD, [facility] - Urology Providers of Expert, Compassionate Care for the Genitourinary System Coding Level of Care Code Est Pt Level 3 (64732) Diagnoses Prostatitis N41.9 Elevated PSA R97.20
== END 2023-10-12 10:16 | disposition home or self-care (01) ==
PROVIDERS: PCP Internal Medicine Endocrinology, Diabetes & Metabolism; Visit Provider Urology
DX: N41.9 Inflammatory disease of prostate, unspecified (principal); R97.20 Elevated prostate specific antigen [PSA]
CPT/HCPCS: 99213

== ENCOUNTER → 2023-10-12 08:43 | Outpatient (BNVA) | payer OTHER, SELFPAY | PROVIDERS: PCP Internal Medicine Endocrinology, Diabetes & Metabolism; Visit Provider Urology ==

== ENCOUNTER 2024-04-06 12:20 | Outpatient (REF) | payer OTHER, SELFPAY ==
--- OUTSIDE RECORDS SUMMARY | 2024-04-06 13:15 | XMS_ITS | Data Portability ---
Author Organization [place] - [facility], Allergy Address [address] [address] Care Team Providers Care Housekeeping/Laundry Supervisor Name Role Phone VERONICA BURNS Primary Care Provider [phone] Assessment No assessment recorded. Plan of Treatment Reminders Order Date Submit Date Provider Last Modified By Organization Details Last Modified Time Details Appointments Hearing Test 2024 10:00A M Hearing Test Not available Not available Not available Establish ed 30 2024 10:30A M LINETTE NEUMANN MD Not available Not available Not available Lab None recorded. Referral None recorded. Procedures None recorded. Surgeries None recorded. Imaging None recorded. Medication Orders None recorded. Patient TargetsNo targets recorded. Patient Instructions Encounter Date Encounter Id Patient Instructions Last Modified By Organization Details Last Modified Time 01/13/2024 [id number] Continue wearing aids. No significant change Follow up annually [email or web address] Not available 01/13/2024 10:37:11 Reason for Referral None Reported. Results Created Date Observation Date Name Description Value Unit Range Abnormal Flag Note LastModifiedBy Organization Detail LastModifiedTime 01/13/20 24 audio gram No observ ation record ed. BARCODE Not Available 2023 12:02:07 01/13/20 24 01/13/2024 audio gram No observ ation record ed. [email or web address] Not Available 15:00:20 Result Notes None recorded. Problems Name Problem SNOMED Code Status Onset Date Resolution Date Notes Provider Name and Address Organization Details Recorded Time Sensorine ural hearing loss of bilateral ears [id number] Active 2017 Sensorineu ral hearing loss, bilateral; Note: Date Diagnosed: 06/10/2017 9:28 AM (H90.3) Not Available [facility] 4 03:19:44 Allergic rhinitis [id number] Active 2018 Other allergic rhinitis; Note: Date Diagnosed: 01/05/2019 8:58 AM (J30.89) Not Available [facility] 4 03:19:43 Problem Notes None recorded. Procedures Surgical History Date Name Laterality Status Provider Name and Address Organization Details Recorded Time 01/13/20 24 Comp Audio with Tymps (77369 & 82714) completed HUSEYIN DUMONT, [facility] [address] [facility] [address], [place], [address], [facility] - [facility] 01/13/2024 09:55:22 arthroplasty of knee completed Argeila Tripp [facility] 01/13/2024 10:04:07 Imaging Results Imaging Date Name Status LastModified by [facility] Details LastModified Time 01/13/2024 audiogram completed BARCODE Information no t available 01/13/2024 12:02:07 01/13/2024 audiogram completed [email or web address] Information not available 01/13/2024 15:00:20 Procedure Notes None recorded. Medical Equipment None Reported. Allergies No known drug allergies Medications Name Sig Start Date Stop Date Status Note LastModified by Organization Details LastModified Time amoxicill in 500 mg capsule TAKE 1 CAPSULE BY MOUTH EVERY 6 HOURS UNTIL GONE 01/12 completed Not Available Not Available Not Available atorvasta tin 40 mg tablet TAKE 1 TABLET BY MOUTH EVERY DAY 01/12 completed Not Available Not Available Not Available atorvasta tin 20 mg tablet 01/12 completed Medicati on ID: [id number] D uration Value: 90 Brand Name: atorvast atin Sen d Method: E-Prescr ibed Sub s Allowed: subs [place] Medic ationGen ericName : atorvast atin Not Available Not Available Not Available clonazepa m 0.5 mg tablet TAKE 1 TABLET BY MOUTH TWICE A DAY 01/12 completed Not Available Not Available Not Available clonazepa m 1 mg tablet TAKE 1 TABLET BY MOUTH TWICE A DAY NEEDED active Not Available Not Available No t Available Nexium 40 mg capsule,d elayed release 01/12 completed Medicati on ID: [id number] D uration Value: 90 Brand Name: Nexium S end Method: E-Prescr ibed Sub s Allowed: subs [place] Medic ationGen ericName : Nexium Not Available Not Available Not Available omeprazol e 40 mg capsule,d elayed release 2017 active Medicati on ID: [id number] D uration Value: 90 Brand Name: omeprazo le Send Method: E-Prescr ibed Sub s Allowed: subs [place] Medic ationGen ericName : omeprazo le Not Available Not Available Not Available lorazepam 0.5 mg tablet 01/12 completed Medicati on ID: [id number] D uration Value: 30 Brand Name: lorazepa m Send Method: E-Prescr ibed Sub s Allowed: subs [place] Medic ationGen ericName : lorazepa m Not Available Not Available Not Available tamsulosi n 0.4 mg capsule TAKE 2 CAPSULES (0.8MG) BY MOUTH AT BEDTIME 90 DAYS active Not Available Not Available No t Available omeprazol e 20 mg capsule,d elayed release TAKE 2 CAPSULES BY MOUTH TWICE A DAY 01/12 completed Not Available Not Available Not Available methylpre dnisolone 4 mg tablets in a dose pack TAKE 6 TABLETS ON DAY 1 DIRECTED ON PACKAGE AND DECREASE BY 1 TAB EACH DAY FOR A TOTAL OF 6 DAYS 01/12 completed Not Available Not Available Not Available finasteri de 5 mg tablet TAKE 1 TABLET BY MOUTH EVERY DAY active Not Available Not Available No t Available clonazepa m 0.25 mg disintegr ating tablet TAKE 1 TABLET BY MOUTH TWICE DAILY WITH 0.5MG CLONAZEP AM NEEDED 01/12 completed Not Available Not Available Not Available bupropion HCl XL 300 mg 24 hr tablet, extended release TAKE 1 TABLET BY MOUTH EVERY DAY IN THE MORNING active Not Available Not Available No t Available bupropion HCl XL 150 mg 24 hr tablet, extended release TAKE 1 TABLET BY MOUTH EVERY DAY IN THE MORNING active Not Available Not Available No t Available ProAir HFA 90 mcg/actua tion aerosol inhaler 01/12 completed Medicati on ID: [id number] D uration Value: 17 Brand Name: ProAir HFA Send Method: E-Prescr ibed Sub s Allowed: subs [place] Medic ationGen ericName : ProAir HFA Not Available Not Available Not Available Vyvanse 20 mg capsule TAKE 1 CAPSULE BY MOUTH EVERY MORNING 01/12 completed Not Available Not Available Not Available Vitals Date Recorded Body height Body weight Provider Name and Address Organization Details Last Updated DateTime 01/13/2024 170.18 cm 02776.74 g Argelia Tripp [place] - [facility] 01/13/2024 10:10:38 Social History None recorded. Functional Status None recorded. Mental Status None recorded. Family History Nothing Reported. Medical History Condition Response Anxiety Y Depression Y Asthma Y Past Encounters Encounter ID Performer Location Encounter Start Date Encounter Closed Date Diagnosis/Indication Diagnosis SNOMED-CT Code Diagnosis ICD10 Code Diagnosis Note [id number] LINETTE REIS MD [facility] [address] [address] 01/13/2024 09:19:07 01/13/2024 11:16:18 Sensorineural hearing loss of bilateral ears [id number] H90.3 Audiologic al evaluation results: Right ear: {{Normal* Normal through 2 kHz Mild M oderate Mo derately-s evere Corazon re Profoun d}} {{hearing sloping to a mild slopi ng to a moderate s loping to moderately severe slo ping to severe* sl oping to profound f lat high frequency low frequency mid frequency cookie bite hopkins curve}} {{with sen sorineural hearing loss with* cond uctive hearing loss with mixed hearing loss with}} {{excellen t* good fa ir poor no measurable }} word recognitio n. Left ear: {{Normal* Normal through 2 kHz Mild M oderate Mo derately-s evere Corazon re Profoun d}} {{hearing sloping to a mild slopi ng to a moderate s loping to moderately severe* sl oping to severe slo ping to profound f lat high frequency low frequency mid frequency cookie bite hopkins curve}} {{with sen sorineural hearing loss with* cond uctive hearing loss with mixed hearing loss with}} {{excellen t* good fa ir poor no measurable }} word recognitio n. Tympanomet ry: Right Ear:{{Type A* Type As Type Ad Type C Type C, shallow & rounded Ty pe B Type B with large volume Cou ld not maintain a hermetic seal}} Left Ear:{{Type A* Type As Type Ad Type C Type C, shallow & rounded Ty pe B Type B with large volume Cou ld not maintain a hermetic seal}} Health Concerns Section Related Observation LastModified by Organization Detai ls LastModified Time None Recorded Concern Status LastModified by Organization Details LastModified Time None Recorded Advance Directives Directive None Recorded Payers Encounter Date Sequence Insurance Name Policy Number Policy Burgos Covered Member ID Burgos Member ID Guarantor Name 01/13/2024 1 [employer] [id number] [place]nie [place] [id number] [place] Notes Date Note Type Note Provider Name and Address Organization Details Recorded Time 01/13/2024 text/html Feels hearing of f a little. Using aids bilaterally. No tinnitus or vertigoMore difficulty in classroom situations LINETTE STONE MD [address] [place] [address], [phone], [facility] - [facility] 01/13/2024 10:37:26
--- OUTSIDE RECORDS SUMMARY | 2024-04-06 13:16 | XMS_ITS ---
Author Name [facility] Organization Unknown History of Medication Use Medication Directions Dispensed Refills Start Date End Date Stat nitrofurantoin monohydrate/macrocryst als 100 mg capsule TAKE 1 CAPSULE BY MOUTH EVERY 12 HOURS active clonazepam 1 mg tablet TAKE 1 TABLET BY MOUTH THREE TIMES A DAY active levofloxacin 750 mg tablet TAKE 1 TABLET BY MOUTH EVERY DAY FOR 11 DAYS active
--- OUTSIDE RECORDS SUMMARY | 2024-04-06 13:16 | XMS_ITS | Data Portability ---
Author Organization [place] [facility] Cecilia Redman AONE [place] Address [address] [facility] [address] [place] [address] Care Team Providers Care Open Soaper Tender Name Role Phone VERONICA BURNS Primary Care Provider Assessment Encounter Date Assessment Date Assessment LastModified by Organization Details LastModified Time 10/08/2022 10/08/2022 HPI : Patient is here for 1 year follow-up for a left medial unicompartmental knee replacement. He has had significant improvements over the course the last 9 months. He reports really 0 pain at baseline. Maybe some mild pain. Has been doing a lot of activities. He did body surfing yesterday. He has been rolling a lot. On a rowing machine.. Overall, ?Patient reports good pain relief in the knee and satisfactory amish of function in terms of activities of daily living. Physical Exam : Patient is well nourished, well-developed, in no acute distress, with appropriate mood and affect. The patient is oriented to time, place, and person. Respirations are even and unlabored. There is no inguinal adenopathy. Examination of the contralateral knee shows normal range of motion, strength, and intact skin. Some pain with patellar compression. The affected limb is well-perfused, with well healed skin incision. The patient demonstrates good knee motion, stability, and strength. The knee moves from 0-135 degrees. The alignment of the knee is neutral. Muscle strength is normal. Pedal pulses are palpable. Hip examination, including flexion and internal rotation, was negative in that groin pain was not produced. Assessment/Plan : This patient is functioning well 1 year after left medial unicondylar knee replacement. Continue knee conditioning exercises. Bjnp-flw-mrdbuto medications as needed. Ultimate failure may occur due to mechanical wear, loosening or breakage. Follow-up is recommended to assess for the possibility of failure. Follow-up at 5 years from surgery unless there are issues before then. He may come in for his right knee pain before then. Not available 10/08/2022 11:23:49 Plan of Treatment Reminders Order Date Submit Date Provider Last Modified By Organization Details Last Modified Time Details Appointments None record ed. Lab None record ed. Referral None record ed. Procedures None record ed. Surgeries None record ed. Imaging XR, knee, 3 view 023 10/09/19 23 [email or web address] [facility], [address], [address], [place], [address], 3 12:17:00 Medication Orders None record ed. Patient TargetsNo targets recorded. Patient Instructions Encounter Date Encounter Id Patient Instructions Last Modified By Organization Details Last Modified Time 10/08/2022 [id number] AP, lateral, patellar views of the left knee demonstrate a left medial unicondylar knee replacement with components in appropriate position without any signs of hardware related complications. Not available 10/08/2022 11:24:06 Reason for Referral None Reported. Procedures Surgical History Date Name Laterality Status Provider Name and Address Organization Details Recorded Time Knee Surgery completed Mirza Esquivel - [facility] 10/08/2022 11:11:40 Imaging Results None recorded. Procedure Notes None recorded. Medical Equipment None Reported. Allergies No known drug allergies Medications Name Sig Start Date Stop Date Status Note LastModified by Organization Details LastModified Time atorvastatin 40 mg tablet TAKE 1 TABLET BY MOUTH EVERY DAY active Not Available Not Available No t Available phenazopyridi ne 200 mg tablet TAKE ONE TABLET BY MOUTH THREE TIMES A DAY NEEDED FOR PAINFUL URINATION active Not Available Not Available No t Available clonazepam 1 mg tablet TAKE 1 TABLET BY MOUTH THREE TIMES A DAY active Not Available Not Available No t Available sulfamethoxaz ole 800 mg-trimethopr im 160 mg tablet TAKE 1 TABLET BY MOUTH EVERY 12 HOURS FOR 7 DAYS. active Not Available Not Available No t Available lorazepam 0.5 mg tablet TAKE 1 TABLET BY MOUTH EVERY SIX HOURS NEEDED FOR ANXIETY active Not Available Not Available No t Available tamsulosin 0.4 mg capsule TAKE 2 CAPSULES BY MOUTH AT BEDTIME active Not Available Not Available N ot Available linezolid 600 mg tablet TAKE 1 TABLET BY MOUTH TWICE A DAY FOR 14 DAYS active Not Available Not Available No t Available temazepam 30 mg capsule TAKE 1 CAPSULE BY MOUTH EVERY DAY AT BEDTIME NEEDED active Not Available Not Available No t Available cephalexin 500 mg capsule TAKE ONE CAPSULE BY MOUTH THREE TIMES A DAY FOR 7 DAYS active Not Available Not Available No t Available omeprazole 20 mg capsule,delay ed release TAKE 2 CAPSULES BY MOUTH TWICE A DAY active Not Available Not Available No t Available levofloxacin 500 mg tablet TAKE ONE TABLET BY MOUTH ONCE A DAY X 7 DAYS active Not Available Not Available No t Available levofloxacin 750 mg tablet TAKE 1 TABLET BY MOUTH EVERY DAY FOR 11 DAYS active Not Available Not Available No t Available albuterol sulfate HFA 90 mcg/actuation aerosol inhaler TAKE 2 PUFFS BY MOUTH 4 TIMES A DAY NEEDED active Not Available Not Available No t Available oxybutynin chloride 5 mg tablet TAKE 1 TABLET BY MOUTH EVERY 8 HOURS NEEDED FOR BLADDER SPASM. active Not Available Not Available No t Available doxycycline hyclate 100 mg tablet TAKE 1 TABLET BY MOUTH TWICE A DAY FOR 14 DAYS active Not Available Not Available No t Available bupropion HCl XL 300 mg 24 hr tablet, extended release TAKE 1 TABLET BY MOUTH ONCE A DAY WITH ONE 150 MG TABLET active Not Available Not Available No t Available bupropion HCl XL 150 mg 24 hr tablet, extended release TAKE 1 TABLET BY MOUTH EVERY DAY active Not Available Not Available No t Available nitrofurantoi n monohydrate/m acrocrystals 100 mg capsule TAKE 1 CAPSULE BY MOUTH EVERY 12 HOURS active Not Available Not Available No t Available Vitals None Recorded Social History Question Answer Notes LastModified by Organizat ion Details LastModified Time Tobacco Smoking Status Never Smoker Mirza Randhawa null, [place] [facility] 10/08/2022 11:12:35 What Is Your Level Of Alcohol Consumption? Occasional [email or web address] Information not available 10/08/2022 How Many Times Per Week Do You Consume Alcohol? 1-2 Times Per Week [email or web address] Information not available 10/08/2022 Do You Use Any Illicit Or Recreational Drugs? No [email or web address] Information not available 10/08/2022 Do You Or Have You Ever Used Any Other Forms Of Tobacco Or Nicotine? No [email or web address] Information not available 10/08/2022 Sex: Unknown Functional Status None recorded. Mental Status None recorded. Family History Relationship Description Onset Age of this Age Resolved Age Notes LastModified by Organization Details LastModified Time Mother Hyperlipidem ia [email or web address] Not available 12/2022 11:13:04 Mother Arthritis [email or web address] Not avai lable 10/08/2022 11:13:08 Medical History Condition Response Depression Y Anxiety Disorder Y Reflux/GERD Y Past Encounters Encounter ID Performer Location Encounter Start Date Encounter Closed Date Diagnosis/Indication Diagnosis SNOMED-CT Code Diagnosis ICD10 Code Diagnosis Note [id number] MD MARTI Mendez [facility] [address] [facility] [facility] [address] [place] [address] 10/08/2022 11:02:35 10/08/2022 11:22:51 History of left total knee replacement 8633043335 114978 Z96.652 Aftercare [id number] Z47. 1 Health Concerns Section Related Observation LastModified by Organization Detai ls LastModified Time None Recorded Concern Status LastModified by Organization Details LastModified Time None Recorded Advance Directives Directive None Recorded Payers Encounter Date Sequence Insurance Name Policy Number Policy Burgos Covered Member ID Burgos Member ID Guarantor Name 10/08/2022 1 [employer] - CHOICE (POS II) [id number] [place] [id number] [place]
--- OUTSIDE RECORDS SUMMARY | 2024-04-06 13:16 | XMS_ITS | Clinical Summary ---
Author Organization [facility] Address [address] [place] [address] Care Team Providers Care Survey Research Associate Name Role Phone Charles Campbell MD Primary Care Provider [phone] Allergies No known active allergies Medications Medication Sig Dispensed Refills Start Date End Date Status atorvastatin (LIPITOR) tablet 40 mg Take 40 mg by mouth daily. 0 06/12/2020 Active buPROPion (WELLBUTRIN XL) 150 MG 24 hr tablet 450 mg. 0 07/08/2020 Active LORazepam (ATIVAN) 0.5 MG tablet 2 (two) times a day. 0 07/13/2020 Active tamsulosin (FLOMAX) 0.4 MG CAPS Take 0.4 mg by mouth every evening. 0 07/16/2020 Active omeprazole (PriLOSEC) 20 MG capsule Take 40 mg by mouth 2 (two) times a day. 40 MG IN THE AM AND 20 MG IN THE PM 0 09/13/2020 Active ibuprofen 800 MG tablet Take 800 mg by mouth every 8 (eight) hours as needed. for pain 0 04/03/2021 Active sildenafil (VIAGRA) 25 MG tablet Take 25 mg by mouth daily as needed. 0 Active oxyCODONE (ROXICODONE) 5 MG immediate release tablet Take 1-2 tablets (5-10 mg total) by mouth every 4 (four) hours as needed for pain. 40 tablet 0 07/31/2021 Active amoxicillin (AMOXIL) 500 MG capsule TAKE 1 CAPSULE EVERY 6 HOURS UNTIL GONE 0 07/14/2021 Active cephalexin (KEFLEX) 500 MG capsule 0 09/09/2021 Active esomeprazole (NexIUM) 40 MG capsule Take 40 mg by mouth. 0 06/05/2019 Active nitrofurantoin, macrocrystal-monohyd rate, (MACROBID) 100 MG capsule Take 100 mg by mouth every 12 (twelve) hours. 0 09/05/2021 Active phenazopyridine (PYRIDIUM) 200 MG tablet TAKE ONE TABLET BY MOUTH THREE TIMES A DAY NEEDED FOR PAINFUL URINATION 0 09/01/2021 Active sulfamethoxazole-tri methoprim (BACTRIM DS) 800-160 MG per tablet TAKE 1 TABLET BY MOUTH EVERY 12 HOURS FOR 7 DAYS. 0 09/02/2021 Active temazepam (RESTORIL) 30 MG capsule Take 30 mg by mouth every night at bedtime as needed. 0 08/12/2021 Active Active Problems Problem Noted Date Diagnosed Date Prediabetes 07/29/2021 Acute medial meniscus tear of left knee 10/24/19 21 Immunizations Name Administration Dates Next Due Covid-19 (Pfizer) Dilution Required 12/15/2020,0 06/11/2020,05/21/2020 Family History Medical History Relation Name Comments No Sig Med Hx Brother Peng Depression Daughter venita No Sig Med Hx Father Marlo Heart attack Maternal Grandfather No Sig Med Hx Maternal Grandmother Thomas Arthritis Mother Cheyanne Hyperlipidemia Mother Cheyanne Depression Son 1 kirby Learning disabilities Son 2 sammy Relation Name Status Comments Brother Peng Alive Daughter venita Alive Father Marlo Alive Maternal Grandfather Maternal Grandmother Thomas Alive Mother Cheyanne Alive Son 1 kirby Alive Son 2 sammy Alive Social History Tobacco Use Types Packs/Day Years Used Date Smoking Tobacco: Never Smokeless Tobacco: Never Alcohol Use Standard Drinks/Week Comments Yes 2 (1 standard drink = 0.6 oz pur e alcohol) COUPLE TIMES A WEEK Sex and Gender Information Value Date Recorded Sex Assigned at Not on file Gender Identity Not on file Sexual Orientation Not on file Job Start Date Occupation Industry Not on file Not on file Not on file Last Filed Vital Signs Vital Sign Reading Time Taken Comments Blood Pressure 139/84 07/30/2021 9:19 AM EDT Pulse 75 07/30/2021 9:19 AM EDT Temperature 35.8 ??C (96.4 ??F) 07/30/2021 9:19 AM ED T Respiratory Rate 15 07/30/2021 9:19 AM EDT Oxygen Saturation 96% 07/30/2021 9:19 AM EDT Inhaled Oxygen Concentration - - Weight 72.6 kg (160 lb) 11/25/2021 2:17 PM EDT Height 170.2 cm (5' 7 ) 11/25/2021 2:17 PM EDT Body Mass Index 25.06 11/25/2021 2:17 PM EDT Plan of Treatment Health Maintenance Due Date Last Done Comments Hepatitis C Screening 1958 Depression Screening 1970 BMI Counseling 1976 Preventative Health Evaluation 1976 DTap / Tdap / Td (1 - Tdap) 1977 Colon Cancer Screening (Colonoscopy) 2003 Shingrix-Zoster Vaccine (1 o f 2) 2008 Fall Risk Assessment 2023 Pneumococcal Vaccine (1 of 1 - PCV) 2023 COVID-19 Vaccine (4 - 2023-2 5 season) 2023 12/15/2020, 06/11/2020, 05/21/2020 Influenza Vaccine (#1) 2023 , 02/21/2020, 01/01/2018 RSV Adult > 60+ Yrs or (1 - 1-dose 75+ series) 2033 Hepatitis B Vaccines Aged Out No long er eligible based on patient's age to complete this topic Pneumococcal Vaccine Aged Out No long er eligible based on patient's age to complete this topic RSV Ped < 20 months Aged Out No longe r eligible based on patient's age to complete this topic Care Teams Survey Research Associate Relationship Specialty Start Date End Date Charles Campbell MD [address] [place] [address] [place] [address] PCP - General Production Hardener 07/07/20
--- OUTSIDE RECORDS SUMMARY | 2024-04-06 13:16 | XMS_ITS | Clinical Summary ---
Author Organization [facility] Address [address] [place] [address] Care Team Providers Care Trouble Locater Name Role Phone Charles Campbell MD Primary Care Provider Medications Medication Sig Dispensed Refills Start Date End Date Status omeprazole (PriLOSEC) [address] capsuleIndications: GERD (gastroesophageal reflux disease) TAKE 2 CAPSULES BY MOUTH TWICE A DAY 360 capsule 1 03/08/2024 Active Encounters Date Type Department Care Team Description 03/08/2024 Telephone Gastroenterology - [address] [facility] [address] [place] [id number] Keri Tai MA from Last 3 Months Surgical History Surgery Date Site/Laterality Comments LIPOMA RESECTION 2001 PROCEDURE:LIPOMA RESECTION;COMMENT:ON ABDOMEN Medical History Medical History Date Comments Hypercholesteremia DX:Hyperchole steremia Osteoarthritis DX:Osteoarthriti s PTSD (post-traumatic stress disorder) DX:PTSD (post-traumatic stress disorder);COMMENT:ANXIETY AND DEPRESSION GERD (gastroesophageal reflux disease) DX:GERD (gastroesophageal reflux disease) History of chest pain DX:History of chest pain Family History Medical History Relation Name Comments No Known Problems Brother Peng Depression Daughter venita No Known Problems Father Marlo Heart attack Maternal Grandfather No Known Problems Maternal Grandmother Thomas Arthritis Mother Cheyanne Hyperlipidemia Mother Cheyanne Depression Son 1 kirby Learning disabilities Son 2 sammy Relation Name Status Comments Brother Peng Alive Daughter venita Alive Father Marlo Alive Maternal Grandfather Maternal Grandmother Thomas Alive Mother Cheyanen Alive Son 1 kirby Alive Son 2 sammy Alive Social History Tobacco Use Types Packs/Day Years Used Date Smoking Tobacco: Never Smokeless Tobacco: Never Alcohol Use Standard Drinks/Week Comments Yes 2 (1 standard drink = 0.6 oz pur e alcohol) Sex and Gender Information Value Date Recorded Sex Assigned at Not on file Gender Identity Not on file Sexual Orientation Not on file Obstetrics History Last Filed Vital Signs Vital Sign Reading Time Taken Comments Blood Pressure 139/84 07/30/2021 9:19 AM EDT Sit ting Left arm Pulse 75 07/30/2021 9:19 AM EDT Temperature - - Respiratory Rate - - Oxygen Saturation - - Inhaled Oxygen Concentration - - Weight 72.6 kg (160 lb) 11/25/2021 2:17 PM EDT Height 170.2 cm (5' 7 ) 11/25/2021 2:17 PM EDT Body Mass Index 25.06 11/25/2021 2:17 PM EDT Plan of Treatment Health Maintenance Due Date Last Done Comments DTaP,Tdap,and Td Vaccines (1 - Tdap) 1977 Zoster Vaccines (1 of 2) 2008 Abdominal Aortic Aneurysm (AAA) Screen 02/05/2022 Cholesterol Screening (Lipid Panel) 02/05/2022 Colorectal Cancer Screening: Colonoscopy 02/05/2022 Depression Screening 02/05/2022 Hepatitis C Screening 02/05/2022 Social Influencers of Health Screening 02/05/2022 Falls Risk Assessment 2023 Pneumococcal Vaccine: 65+ Years (1 of 1 - PCV) 2023 COVID-19 Vaccine (4 - 2023-2 5 season) 2023 12/15/2020, 06/11/2020, 05/21/2020 Influenza Vaccine (#1) 2023 RSV Immunization Patients 60 + Years Old (1 - 1-dose 75+ series) 2033 HIB Vaccines Aged Out No longer eligi ble based on patient's age to complete this topic HPV Vaccines Aged Out No longer eligi ble based on patient's age to complete this topic Hepatitis A Vaccines Aged Out No long er eligible based on patient's age to complete this topic Hepatitis B Vaccines Aged Out No long er eligible based on patient's age to complete this topic IPV Vaccines Aged Out No longer eligi ble based on patient's age to complete this topic MMR Vaccines Aged Out No longer eligi ble based on patient's age to complete this topic Meningococcal ACWY Vaccine Aged Out N o longer eligible based on patient's age to complete this topic Pneumococcal Vaccine: Pediatrics (0 to 5 Years) and At-Risk Patients (6 to 64 Years) Aged Out No longer eligible b ased on patient's age to complete this topic RSV Immunization Patients Under 20 months Aged Out No longer eligible b ased on patient's age to complete this topic Varicella Vaccines Aged Out No longer eligible based on patient's age to complete this topic Care Teams Trouble Locater Relationship Specialty Start Date End Date Charles Campbell MD [address] [place] [address] [address] [place] [address] PCP - General Manager University 07/07/20
--- OUTSIDE RECORDS SUMMARY | 2024-04-06 13:16 | XMS_ITS | Encounter Summary ---
Author Organization [facility] Address [address] [place] [address] Care Team Providers Care Car Conditioner Name Role Phone Charles Campbell MD Primary Care Provider Encounter Details Date Type Department Care Team (Late st Contact Info) Description 03/08/2024 Telephone Gastroenterology - [address] [place] [phone] Keri Tai MA Social History Tobacco Use Types Packs/Day Years Used Date Smoking Tobacco: Never Smokeless Tobacco: Never Alcohol Use Standard Drinks/Week Comments Yes 2 (1 standard drink = 0.6 oz pur e alcohol) Sex and Gender Information Value Date Recorded Sex Assigned at Not on file Gender Identity Not on file Sexual Orientation Not on file documented as of this encounter Progress Notes * Keri Tai MA - 03/08/2024 8:29 AM EST Rx for omeprazole documented in this encounter Plan of Treatment Not on file documented as of this encounter Visit Diagnoses Not on filedocumented in this encounter Care Teams Car Conditioner Relationship Specialty Start Date End Date Charles Campbell MD [address] [place] [address] [address] [place] [address] PCP - General Unit Control Worker 07/07/20 documented as of this encounter
[2024-04-06 13:31] LABS: Blood Urea Nitrogen 12 mg/dL (9-16); Estimated Glomerular Filt Rate > 60
[2024-04-06 13:56] LABS: PSA,Total (Free>4and<10) 8.16 ng/mL (0.00-4.00)
[2024-04-10 05:58] LABS: Free Prostate Spec Ag 1.1 ng/mL; Percent Free Prostate Spec Ag 14 % (calc) (>25); Prostate Specific Ag Total 8.1 ng/mL (< OR = 4.0)
== END 2024-04-06 12:21 | disposition home or self-care (01) ==
LOC: HO.LAB 12:20
PROVIDERS: PCP Internal Medicine Endocrinology, Diabetes & Metabolism; Visit Provider Urology
DX: R97.20 Elevated prostate specific antigen [PSA] (principal); N41.9 Inflammatory disease of prostate, unspecified; Z12.5 Encounter for screening for malignant neoplasm of prostate
CPT/HCPCS: 36415; 82565; 84153; 84154; 84520

== ENCOUNTER 2024-04-12 09:02 | Outpatient (AMB) | payer OTHER, SELFPAY ==
--- NOTE | 2024-04-12 09:03 | A.OFFVIS_ITS ---
Intake Visit Reasons: 6M PSA(Set)Elevated Intake Note: Patient is present for 6M PSA ELEVATED Urology Medication:TAMSULOSIN,FINASTERIDE TADALAFIL Antibiotic Allergy:NONE Blood Thinner:ASPIRIN Discharge Rn Required: No Allergies No Known Allergies Allergy (Verified 04/12/24 09:03) HPI Comments Details: Lonnie is a pleasant male. He is a patient of Dr Campbell. He is seen for the following urologic conditions - prostatitis - elevated PSA Telemedicine Evaluation 15 min Consultation [employer] Prostatitis and elevated PSA follow-up PSA 07/21 8.6, 04/24 8.1 14% GENESIS 2+ soft Prostate MRI 09/20 - 68 g prostate BPH whorls, no evidence of clinically significant disease Continue interval surveillance Has discomfort in perineum in the late afternoon/evening Trial NSAID in afternoon Could split tamosulosin dose for evening and afternoon Elevated PSA Longstanding Previously in the teens Patient reports 2 prior negative biopsies Prostatitis Hospital admission prostatitis August 2021 Treated with Levaquin for 2 weeks Microgen 10/19 - Bacterial load low - Corynebacterium sensitive to doxycycline [facility] Medical History GERD (gastroesophageal reflux disease) Hepatic steatosis Barretts esophagus HLD (hyperlipidemia) BPH (benign prostatic hyperplasia) Surgical History History of arthroplasty of left knee (~07/2021) Family History Other No family history of coronary artery disease Social History Household Members: Spouse Housing: House Do you presently have visiting nurse or other home services: No Patient Tobacco Use Status: Never used Tobacco e-Cigarette/Vaping Use: Never Used service: No Current occupational status: employed Review of Systems Const All systems reviewed & are unremarkable except as noted in HPI and below Reports no additional complaints Resp Reports no additional complaints GI Reports no additional complaints Reports as per HPI Musc Reports no additional complaints Physical Exam Telemedicine evaluation Appropriate responses Regular breathing rate and rhythm HEENT Head: Yes normal to inspection Ears: hearing grossly normal bilaterally Eyes General: appearance normal, both eyes and all related structures Neck Neck: Yes normal visual inspection Chest Chest palpation & inspection: normal inspection of the chest Resp Effort & Inspection: normal respiratory effort and able to speak in complete sentences Telehealth Telehealth Location of provider rendering services: practice address Location of patient: address on file Patient Identification confirmed using: Name, : Yes Telehealth method: voice only Patient verbally consented to treatment: Yes Patient verbally consented to billing insurance company: Yes Patient informed of any privacy concerns related to visit: Yes Assessment & Plan Assessment & Plan (1) Prostatitis: Code(s): N41.9 - Inflammatory disease of prostate, unspecified Category: Medical (2) Elevated PSA: Code(s): R97.20 - Elevated prostate specific antigen [PSA] Category: Medical (3) Erectile dysfunction: Code(s): N52.9 - Male erectile dysfunction, unspecified Category: Medical Plan trial tamsulosin split dose trial naprosyn Orders: Orders PSA,Total (Free>4and<10) 6 Months R97.20 - Elevated prostate specific antigen [PSA] Medications: New naproxen (Naprosyn) 500 mg PO Q12H PRN 30 tabs 2RF pain N41.9 - Inflammatory disease of prostate, unspecified Refilled finasteride 5 mg PO DAILY 90 days 90 tabs 1RF N13.8 - Other obstructive and reflux uropathy, N40.1 - Benign prostatic hyperplasia with lower urinary tract symptoms, N41.9 - Inflammatory disease of prostate, unspecified, R33.9 - Retention of urine, unspecified Discontinued linezolid Discontinued Reason: Patient Completed Course 600 mg PO BID 14 days 28 tabs 0RF N41.9 - Inflammatory disease of prostate, unspecified Patient Instructions: This note is constructed using voice recognition software. While every effort has been made to ensure accuracy special education paraprofessional errors may have been included. Imaging studies, laboratory and physical exam results were discussed and reviewed in detail. No major barriers to patient understanding were identified. An opportunity to ask questions regarding the treatment plan was provided. All questions were answered. The patient expressed understanding and agreement with the above treatment plan. The patient is aware they should contact our office by phone for worsening of their current condition or the appearance of new urologic symptoms. Compliance is encouraged with any medications and followup testing that is ordered. It is a privilege to participate in the urologic care of your patient. If you have any questions or concerns regarding treatment for the above conditions, or other urologic issues, please do not hesitate to contact me. The office telephone contact is [phone]. Sincerely, Dr Reed Herrera MD, [facility] - Urology Compassionate Specialist Care for the Genitourinary System Coding Level of Care Code Tele Est Pt Level 4 (15086) Diagnoses Prostatitis N41.9 Elevated PSA R97.20 Erectile dysfunction N52.9
--- OUTSIDE RECORDS SUMMARY | 2024-04-12 09:29 | XMS_ITS | Data Portability ---
Author Organization [place] - [facility], Allergy Address [address] [address] Care Team Providers Care Nurse School Name Role Phone VERONICA BURNS Primary Care Provider [phone] Assessment No assessment recorded. Plan of Treatment [...] By Organization Details Last Modified Time 01/13/2024 [id number] Continue wearing aids. No significant change Follow [...] Sensorine ural hearing loss of bilateral ears [id number] Active 2017 Sensorineu ral hearing loss, bilateral; Note: Date Diagnosed: 06/10/2017 9:28 AM (H90.3) Not Available [facility] 4 03:19:44 Allergic rhinitis [id number] Active 2018 Other allergic rhinitis; Note: Date Diagnosed: 01/05/2019 8:58 AM (J30.89) Not Available [facility] 4 03:19:43 Problem Notes None recorded. Procedures Surgical History Date Name Laterality Status Provider Name and Address Organization Details Recorded Time 01/13/20 24 Comp Audio with Tymps (48024 & 38772) completed HUSEYIN DUMONT, [facility] 100 [facility], [place], [address], [facility] - [facility] 01/13/2024 09:55:22 arthroplasty of knee completed Argelia Tripp [facility] 01/13/2024 10:04:07 Imaging Results Imaging Date Name Status LastModified by [facility] Details LastModified Time 01/13/2024 audiogram completed BARCODE [...] mg tablet 01/12 completed Medicati on ID: [id number] D uration Value: 90 Brand Name: atorvast [...] elayed release 01/12 completed Medicati on ID: [id number] D uration Value: 90 Brand Name: Nexium S end Method: E-Prescr ibed Sub s Allowed: subs OK Medic ationGen ericName : Nexium Not Available Not Available Not Available omeprazol e 40 mg capsule,d elayed release 2017 active Medicati on ID: [id number] D uration Value: 90 Brand Name: omeprazo le Send Method: E-Prescr ibed Sub s Allowed: subs OK Medic ationGen ericName : omeprazo le Not Available Not Available Not Available lorazepam 0.5 mg tablet 01/12 completed Medicati on ID: [id number] D uration Value: 30 Brand Name: lorazepa [...] aerosol inhaler 01/12 completed Medicati on ID: [id number] D uration Value: 17 Brand Name: ProAir [...] Details Last Updated DateTime 01/13/2024 170.18 cm 79434.74 g Argelia Tripp [place] - [facility] 01/13/2024 10:10:38 Social History None recorded. Functional Status None recorded. Mental Status None recorded. Family History Nothing Reported. Medical History Condition Response Anxiety Y Depression Y Asthma Y Past Encounters Encounter ID Performer Location Encounter Start Date Encounter Closed Date Diagnosis/Indication Diagnosis SNOMED-CT Code Diagnosis ICD10 Code Diagnosis Note [id number] LINETTE REIS MD [facility] [address] [address] 01/13/2024 09:19:07 01/13/2024 11:16:18 Sensorineural hearing loss of bilateral ears 027179133 H90.3 Audiologic al evaluation results: Right ear: [...] Member ID Guarantor Name 01/13/2024 1 [employer] [id number] [place] [id number] [place] Notes Date Note Type Note Provider Name and Address Organization Details Recorded Time 01/13/2024 text/html Feels hearing of f a little. Using aids bilaterally. No tinnitus or vertigoMore difficulty in classroom situations LINETTE STONE MD [address] [place] [address], [phone], [facility] - [facility] 01/13/2024 10:37:26
--- OUTSIDE RECORDS SUMMARY | 2024-04-12 09:29 | XMS_ITS | Clinical Summary ---
Author Organization [facility] Address [address] [place] [address] Care Team Providers Care Janitorial Maintenance Worker Name Role Phone Charles Campbell MD Primary Care Provider [phone] Allergies No known active allergies Medications Medication [...] age to complete this topic Care Teams Janitorial Maintenance Worker Relationship Specialty Start Date End Date Charles Campbell MD [address] [place] [address] [place] [address] PCP - General Office Engineer 07/07/20
== END 2024-04-12 09:45 | disposition home or self-care (01) ==
LOC: HO.HUSH 09:02
PROVIDERS: PCP Internal Medicine Endocrinology, Diabetes & Metabolism; Visit Provider Urology
DX: N41.9 Inflammatory disease of prostate, unspecified (principal); R97.20 Elevated prostate specific antigen [PSA]; N52.9 Male erectile dysfunction, unspecified
CPT/HCPCS: 99214

== ENCOUNTER → 2024-04-12 09:02 | Outpatient (BNVA) | payer OTHER, SELFPAY | PROVIDERS: PCP Internal Medicine Endocrinology, Diabetes & Metabolism; Visit Provider Urology ==

== ENCOUNTER 2024-07-26 09:32 | Outpatient (AMB) | payer OTHER, SELFPAY ==
--- NOTE | 2024-07-26 09:33 | MHC.OFFVIS ---
Intake Visit Reasons: 3m Follow up Intake Note: Patient is present for 3M F/U Urology Medication: NAPROXEN, TAMSULOSIN, FINASTRIDE Antibiotic Allergy:NONE Blood Thinner:ASPIRIN Precision Jig Grinder Required: No Allergies No Known Allergies Allergy (Verified 07/26/24 09:35) HPI Comments Details: Lonnie is a pleasant male. He is a patient of Dr Campbell. He is seen for the following urologic conditions - prostatitis - elevated PSA Telemedicine Evaluation 15 min Consultation [employer] Yossi Video Follow-up from trial of split tamsulosin dosing and nonsteroidals Found medications helpful Did have questions about long-term use of nonsteroidals Offered meloxicam Would prefer to just remain on daily naproxen PSA 07/21 8.6, 04/24 8.1 14%, 07/22 5.6 GENESIS 2+ soft Prostate MRI 09/20 - 68 g prostate BPH whorls, no evidence of clinically significant disease Continue interval surveillance Elevated PSA Longstanding Previously in the teens Patient reports 2 prior negative biopsies Prostatitis Hospital admission prostatitis August 2021 Treated with Levaquin for 2 weeks Microgen 10/19 - Bacterial load low - Corynebacterium sensitive to doxycycline [facility] Medical History GERD (gastroesophageal reflux disease) Hepatic steatosis Barretts esophagus HLD (hyperlipidemia) BPH (benign prostatic hyperplasia) Surgical History History of arthroplasty of left knee (~07/2021) Family History Other No family history of coronary artery disease Social History Household Members: Spouse Housing: House Do you presently have visiting nurse or other home services: No Patient Tobacco Use Status: Never used Tobacco e-Cigarette/Vaping Use: Never Used service: No Current occupational status: employed Review of Systems Const Denies chills and Denies fever(s) Card Reports no additional complaints and Denies syncope Resp Denies cough GI Denies abdominal pain and Denies heartburn Reports as per HPI and Denies change in libido Neuro Denies syncope Psych Denies change in libido Endo Denies change in libido Physical Exam Const General: cooperative, healthy appearing, comfortable and no acute distress Orientation/consciousness: patient oriented x3 HEENT Face and sinus: Yes normal facial exam Mouth: moist mucous membranes Neck Neck: Yes normal visual inspection, Yes full ROM and Yes trachea midline Chest Chest palpation & inspection: normal inspection of the chest Resp Effort & Inspection: normal respiratory effort, able to speak in complete sentences and no respiratory distress GI Inspection: Yes normal to inspection Back/Spine/Pelvis Cervical Spine: normal cervical lordosis Thoracic/Lumbar Spine: thoracic and lumbar spine normal to inspection Skin General skin exam: no rashes or lesions noted Neuro General: patient oriented x3, gait normal, tone normal and moves all extremities Extrem General: Yes normal to inspection and Yes capillary refill normal Assessment & Plan Assessment & Plan (1) Prostatitis: Code(s): N41.9 - Inflammatory disease of prostate, unspecified Category: Medical (2) Elevated PSA: Code(s): R97.20 - Elevated prostate specific antigen [PSA] Category: Medical (3) Erectile dysfunction: Code(s): N52.9 - Male erectile dysfunction, unspecified Category: Medical Plan Continue medications Orders: Orders Blood Urea Nitrogen 6 Months R97.20 - Elevated prostate specific antigen [PSA] PSA,Total (Free>4and<10) 6 Months R97.20 - Elevated prostate specific antigen [PSA] Creatinine 6 Months R97.20 - Elevated prostate specific antigen [PSA] Medications: Changed From naproxen (Naprosyn) 500 mg PO Q12H PRN 30 tabs 0RF pain N41.9 - Inflammatory disease of prostate, unspecified To naproxen (Naprosyn) 500 mg PO Q12H PRN 90 tabs 1RF pain 90 days N41.9 - Inflammatory disease of prostate, unspecified Refilled tamsulosin 0.8 mg (2 x 0.4 mg) PO BEDTIME 180 caps 1RF 90 days N41.9 - Inflammatory disease of prostate, unspecified Patient Instructions: This note is constructed using voice recognition software. While every effort has been made to ensure accuracy asphalt plant operator errors may have been included. Imaging studies, laboratory and physical exam results were discussed and reviewed in detail. No major barriers to patient understanding were identified. An opportunity to ask questions regarding the treatment plan was provided. All questions were answered. The patient expressed understanding and agreement with the above treatment plan. The patient is aware they should contact our office by phone for worsening of their current condition or the appearance of new urologic symptoms. Compliance is encouraged with any medications and followup testing that is ordered. It is a privilege to participate in the urologic care of your patient. If you have any questions or concerns regarding treatment for the above conditions, or other urologic issues, please do not hesitate to contact me. The office telephone contact is [phone]. Sincerely, Dr Reed Herrera MD, [facility] - Urology Compassionate Specialist Care for the Genitourinary System Coding Level of Care Code Tele Est Pt Level 3 (95761) Complex EM visit Add On G2211 Diagnoses Prostatitis N41.9 Elevated PSA R97.20 Erectile dysfunction N52.9
--- OUTSIDE RECORDS SUMMARY | 2024-07-26 09:50 | XMS_ITS | Data Portability ---
Author Organization [place] - [facility], Allergy Address [address] [address] Care Team Providers Care Coordinator Of Library Services Name Role Phone VERONICA BURNS Primary Care Provider Assessment No assessment recorded. Plan of Treatment [...] By Organization Details Last Modified Time 01/13/2024 [id number] Continue wearing aids. No significant change Follow [...] Sensorine ural hearing loss of bilateral ears [id number] Active 2017 Sensorineu ral hearing loss, bilateral; Note: Date Diagnosed: 06/10/2017 9:28 AM (H90.3) Not Available [facility] 4 03:19:44 Allergic rhinitis 47158886 Active 2018 Other allergic rhinitis; Note: Date Diagnosed: 01/05/2019 8:58 AM (J30.89) Not Available [facility] 4 03:19:43 Problem Notes None recorded. Procedures Surgical History Date Name Laterality Status Provider Name and Address Organization Details Recorded Time 01/13/20 24 Comp Audio with Tymps - 34903 & 09121 completed HUSEYIN DUMONT, [facility] 100 [facility] 100, [place], [address], [facility] - [facility] 01/13/2024 09:55:22 arthroplasty of knee completed Argelia Tripp [facility] 01/13/2024 10:04:07 Imaging Results None recorded. Procedure Notes None [...] mg tablet 01/12 completed Medicati on ID: [id number] D uration Value: 90 Brand Name: atorvast atin Sen d Method: E-Prescr ibed Sub s Allowed: subs OK Medic [facility] ericName : atorvast atin Not Available Not [...] elayed release 01/12 completed Medicati on ID: [id number] D uration Value: 90 Brand Name: Nexium S end Method: E-Prescr ibed Sub s Allowed: subs OK Medic ationGen ericName : Nexium Not Available Not Available Not Available omeprazol e 40 mg capsule,d elayed release 2017 active Medicati on ID: [id number] D uration Value: 90 Brand Name: omeprazo le Send Method: E-Prescr ibed Sub s Allowed: subs OK Medic ationGen ericName : omeprazo le Not Available Not Available Not Available lorazepam 0.5 mg tablet 01/12 completed Medicati on ID: [id number] D uration Value: 30 Brand Name: lorazepa [...] aerosol inhaler 01/12 completed Medicati on ID: [id number] D uration Value: 17 Brand Name: ProAir [...] Details Last Updated DateTime 01/13/2024 170.18 cm 69079.74 g Argelia Tripp [place] - [facility] 01/13/2024 10:10:38 Social History None recorded. Functional Status None recorded. Mental Status None recorded. Family History Nothing Reported. Medical History Condition Response Anxiety Y Depression Y Asthma Y Past Encounters Encounter ID Performer Location Encounter Start Date Encounter Closed Date Diagnosis/Indication Diagnosis SNOMED-CT Code Diagnosis ICD10 Code Diagnosis Note [id number] LINETTE REIS MD [facility] [address] [address] 01/13/2024 09:19:07 01/13/2024 11:16:18 Sensorineural hearing loss of bilateral ears [id number] H90.3 Audiologic al evaluation results: Right ear: Normal sloping to severe sensorineu ral hearing loss with excellent word recognitio n. Left ear: Normal sloping to moderately severe sensorineu ral hearing loss with excellent word recognitio n. Tympanomet ry: Right Ear:Type A Left Ear:Type A Health Concerns Section Related Observation LastModified by Organization Detai ls LastModified Time None Recorded Concern Status LastModified by Organization Details LastModified Time None Recorded Advance Directives Directive None Recorded Payers Insurance Date Sequence Insurance Name Policy Number Policy Burgos Covered Member ID Burgos Member ID Guarantor Name 01/13/2024 1 [employer] [id number] Lonnie [place] [id number] [place] Notes Date Note Type Note Provider Name and Address Organization Details Recorded Time 01/13/2024 text/html Feels hearing of f a little. Using aids bilaterally. No tinnitus or vertigoMore difficulty in classroom situations LINETTE STONE MD [address] [place] [address], [phone], [place] - [facility] 01/13/2024 10:37:26
== END 2024-07-26 11:30 | disposition home or self-care (01) ==
LOC: HO.HUSH 09:32
PROVIDERS: PCP Internal Medicine Endocrinology, Diabetes & Metabolism; Visit Provider Urology
DX: N41.9 Inflammatory disease of prostate, unspecified (principal); R97.20 Elevated prostate specific antigen [PSA]; N52.9 Male erectile dysfunction, unspecified
CPT/HCPCS: 99213; G2211

== ENCOUNTER → 2024-07-26 09:32 | Outpatient (BNVA) | payer OTHER, SELFPAY | PROVIDERS: PCP Internal Medicine Endocrinology, Diabetes & Metabolism; Visit Provider Urology ==

== ENCOUNTER 2025-01-29 14:32 | Outpatient (AMB) | payer OTHER, SELFPAY ==
--- NOTE | 2025-01-29 14:32 | MHC.OFFVIS ---
Intake Visit Reasons: 6m follow up/ Labs SET (NO UA) Intake Note: Patient is present for 6M F/U Urology Medication: NAPROXEN, TAMSULOSIN, FINASTRIDE Antibiotic Allergy:NONE Blood Thinner:ASPIRIN Labs done 01/14/25 : PSA 4.4, BUN 24, Creatine 1.14 Air Battle Manager Required: No Accompanied by: Self / Same As Patient Allergies No Known Allergies Allergy (Verified 01/29/25 14:37) HPI Comments Details: Lonnie is a pleasant male. He is a patient of Dr Campbell. He is seen for the following urologic conditions - prostatitis - elevated PSA Telemedicine Evaluation 15 min Consultation [employer] Yossi Video Slow improvement with prostate Lowest PSA we have seen Follow-up from trial of split tamsulosin dosing and nonsteroidals Found medications helpful Did have questions about long-term use of nonsteroidals Offered meloxicam Would prefer to just remain on daily naproxen PSA 07/21 8.6, 04/24 8.1 14%, 07/22 5.6, 01/22 4.4 GENESIS 2+ soft Prostate MRI 09/20 - 68 g prostate BPH whorls, no evidence of clinically significant disease Continue interval surveillance Elevated PSA Longstanding Previously in the teens Patient reports 2 prior negative biopsies Prostatitis Hospital admission prostatitis August 2021 Treated with Levaquin for 2 weeks Microgen 10/19 - Bacterial load low - Corynebacterium sensitive to doxycycline PFS Medical History GERD (gastroesophageal reflux disease) Hepatic steatosis Barretts esophagus HLD (hyperlipidemia) BPH (benign prostatic hyperplasia) Surgical History History of arthroplasty of left knee (~07/2021) Family History Other No family history of coronary artery disease Social History Household Members: Spouse Housing: House Do you presently have visiting nurse or other home services: No Patient Tobacco Use Status: Never used Tobacco e-Cigarette/Vaping Use: Never Used service: No Current occupational status: employed Review of Systems Const All systems reviewed & are unremarkable except as noted in HPI and below Reports no additional complaints Resp Reports no additional complaints GI Reports no additional complaints Reports as per HPI Musc Reports no additional complaints Physical Exam Telemedicine evaluation Appropriate responses Regular breathing rate and rhythm HEENT Head: Yes normal to inspection Ears: hearing grossly normal bilaterally Eyes General: appearance normal, both eyes and all related structures Neck Neck: Yes normal visual inspection Chest Chest palpation & inspection: normal inspection of the chest Resp Effort & Inspection: normal respiratory effort and able to speak in complete sentences Telehealth Telehealth Telehealth Platform: [employer] Location of provider rendering services: practice address Location of patient: address on file Patient Identification confirmed using: Name, : Yes Telehealth method: video Patient verbally consented to treatment: Yes Patient verbally consented to billing insurance company: Yes Patient informed of any privacy concerns related to visit: Yes Assessment & Plan Assessment & Plan (1) Erectile dysfunction: Code(s): N52.9 - Male erectile dysfunction, unspecified Category: Medical (2) Prostatitis: Code(s): N41.9 - Inflammatory disease of prostate, unspecified Category: Medical Plan Twelve month follow-up Orders: Orders PSA,Total (Free>4and<10) 12 Months N41.9 - Inflammatory disease of prostate, unspecified Medications: New celecoxib 100 mg PO ONCE 30 caps 0RF 30 days N41.9 - Inflammatory disease of prostate, unspecified, R39.12 - Poor urinary stream Refilled finasteride 5 mg PO DAILY 90 tabs 1RF 90 days N13.8 - Other obstructive and reflux uropathy, N40.1 - Benign prostatic hyperplasia with lower urinary tract symptoms, N41.9 - Inflammatory disease of prostate, unspecified, R33.9 - Retention of urine, unspecified Patient Instructions: This note is constructed using voice recognition software. While every effort has been made to ensure accuracy director mortgage errors may have been included. Imaging studies, laboratory and physical exam results were discussed and reviewed in detail. No major barriers to patient understanding were identified. An opportunity to ask questions regarding the treatment plan was provided. All questions were answered. The patient expressed understanding and agreement with the above treatment plan. The patient is aware they should contact our office by phone for worsening of their current condition or the appearance of new urologic symptoms. Compliance is encouraged with any medications and followup testing that is ordered. It is a privilege to participate in the urologic care of your patient. If you have any questions or concerns regarding treatment for the above conditions, or other urologic issues, please do not hesitate to contact me. The office telephone contact is [phone]. Sincerely, Dr Reed Herrera MD, [facility] - Urology Compassionate Specialist Care for the Genitourinary System Coding Level of Care Code Tele Est Pt Level 3 (48581) Complex visit Add On G2211 Diagnoses Erectile dysfunction N52.9 Prostatitis N41.9
--- OUTSIDE RECORDS SUMMARY | 2025-01-29 16:29 | XMS_ITS | Encounter Summary ---
Author Organization [facility] Address [address] [place] [address] Care Team Providers Care Rn Ed Name Role Phone Charles Campbell MD Primary Care Provider [phone]- [phone] Reason for Visit * Reason Onset Date Comments MED REFILL 11/22/2024 Encounter Details Date Type Department Care Team (Late Contact Info) Description 11/22/2024 Telephone Gastroenterology - [address] [phone] Adrian Hendrickson MD [address] [address] Social History Tobacco Use Types Packs/Day Years Used Date Smoking Tobacco: Never Smokeless Tobacco: Never Alcohol Use Standard Drinks/Week Comments Yes 2 (1 standard drink = 0.6 oz pur e alcohol) rare Sex and Gender Information Value Date Recorded Sex Assigned at Not on file Legal Sex Male 2:47 AM EST Gender Identity Not on file Sexual Orientation Not on file documented as of this encounter Progress Notes * Tanya Romero - 11/22/2024 1:45 PM EDT ELIZABETH : 10/25/2024 NOV : N/A Medication : OMEPRAZOLE DR Dose : 20 MG CAPSULE 2 PO BID day supply : 90 Prescriber : GEMA FLEMING Pharmacy : ON FILE Is patient out of medication? : RECEIVED FAX PLEASE NOTE MED REFILLS CAN TAKE UP TO 72 HOURS TO FILL documented in this encounter Plan of Treatment Upcoming Encounters Date Type Department Care Team (Late Contact Info) Description 03/05/2025 2:10 PM EST Office Visit [facility] Cardiology [facility] [address] [place] [address] Dr Olson [address] [place] [address] Eitan Acevedo NP [address] [place] [address] Dr Ahn [address] [place] [phone] documented as of this encounter Visit Diagnoses Diagnosis GERD (gastroesophageal reflux disease) Esophageal reflux documented in this encounter Care Teams Rn Ed Relationship Specialty Start Date End Date Charles Campbell MD [address] [place] [address] Dr [address] [place] [address] PCP - General Endocrinology 12/27/24 documented as of this encounter
--- OUTSIDE RECORDS SUMMARY | 2025-01-29 16:30 | XMS_ITS ---
Author Name [facility] Organization Unknown History of Medication Use Medication Directions Dispensed Refills Start Date End Date Stat naproxen (NAPROSYN) 500 MG tablet 04/24/2024 active finasteride (PROSCAR) 5 mg tablet TAKE 1 TABLET BY MOUTH DAILY. 06/27/2023 active albuterol (VENTOLIN HFA) 90 mcg/actuation inhaler Inhale 08/30/2022 05/04/2024 aborted omeprazole (PriLOSEC) 20 MG capsule 09/13/2020 active tamsulosin (FLOMAX) 0.4 mg cap 07/16/2020 active buPROPion (WELLBUTRIN XL) 150 MG 24 hr tablet 07/08/2020 05/04/2024 aborted atorvastatin (LIPITOR) 40 MG tablet Take by mouth 06/12/2020 active buPROPion (WELLBUTRIN XL) 300 MG 24 hr tablet 08/17/2016 active albuterol sulfate HFA 90 mcg/actuation aerosol inhaler TAKE 2 PUFFS BY MOUTH 4 TIMES A DAY NEEDED active atorvastatin 40 mg tablet TAKE 1 TABLET BY MOUTH EVERY DAY active bupropion HCl XL 150 mg 24 hr tablet, extended release TAKE 1 TABLET BY MOUTH EVERY DAY active bupropion HCl XL 300 mg 24 hr tablet, extended release TAKE 1 TABLET BY MOUTH ONCE A DAY WITH ONE 150 MG TABLET active cephalexin 500 mg capsule TAKE ONE CAPSULE BY MOUTH THREE TIMES A DAY FOR 7 DAYS active clonazepam 1 mg tablet TAKE 1 TABLET BY MOUTH THREE TIMES A DAY active doxycycline hyclate 100 mg tablet TAKE 1 TABLET BY MOUTH TWICE A DAY FOR 14 DAYS active levofloxacin 500 mg tablet TAKE ONE TABLET BY MOUTH ONCE A DAY X 7 DAYS active levofloxacin 750 mg tablet TAKE 1 TABLET BY MOUTH EVERY DAY FOR 11 DAYS active linezolid 600 mg tablet TAKE 1 TABLET BY MOUTH TWICE A DAY FOR 14 DAYS active lorazepam 0.5 mg tablet TAKE 1 TABLET BY MOUTH EVERY SIX HOURS NEEDED FOR ANXIETY active nitrofurantoin monohydrate/macrocryst als 100 mg capsule TAKE 1 CAPSULE BY MOUTH EVERY 12 HOURS active omeprazole 20 mg capsule,delayed release TAKE 2 CAPSULES BY MOUTH TWICE A DAY active oxybutynin chloride 5 mg tablet TAKE 1 TABLET BY MOUTH EVERY 8 HOURS NEEDED FOR BLADDER SPASM. active phenazopyridine 200 mg tablet TAKE ONE TABLET BY MOUTH THREE TIMES A DAY NEEDED FOR PAINFUL URINATION active sulfamethoxazole 800 mg-trimethoprim 160 mg tablet TAKE 1 TABLET BY MOUTH EVERY 12 HOURS FOR 7 DAYS. active tamsulosin 0.4 mg capsule TAKE 2 CAPSULES BY MOUTH AT BEDTIME active temazepam 30 mg capsule TAKE 1 CAPSULE BY MOUTH EVERY DAY AT BEDTIME NEEDED active aspirin (ROCKY CHEWABLE ASPIRIN) 81 MG chewable tablet Take 1 tablet (81 mg total) by mouth daily active clonazePAM (KlonoPIN) 1 MG tablet active Problems Problem Status Onset Date Problem Type Date of Resolution Source Gastroesophageal reflux disease active 1974-02-[address] [facility] PTSD (post-traumatic stress disorder) active 2000-02-[address] [facility] Prediabetes active 2021-07-[address] [facility] Asymptomatic coronary heart disease active 2022-08-30 Problem[address] [facility] Benign prostatic hyperplasia active 2022-08-30 [facility] [facility] Elevated liver enzymes active 2022-08-30 Problem[address] [facility] Osteoarthritis active 2022-08-[address] [facility] Hypercholesterolemia active 2006-02-28 ProblemAct [facility] Hearing loss active 2017-05-[address] [facility] Encounters Encounter Type Encounter Reason Primary Diagnosis Location Date Ambulatory [facility] [place] 08/13/2024 Ambulatory Blood Pressure Evaluation Chest pain, unspecified [facility] 05/04/2024 Ambulatory [facility] [place] 10/08/2022 Ambulatory [facility] [place] 10[facility]08/2022 Ambulatory [facility] [place] 10/07/2022 Ambulatory [facility] [place] 08/04/2022 Ambulatory [facility] [place] 08/04/2022 Ambulatory [facility] [place] 06/01/2022 Care Team Organization Name Specialty Phone Email Start Date End Da te [facility] NO PCP Primary Care 05/05
--- OUTSIDE RECORDS SUMMARY | 2025-01-29 16:30 | XMS_ITS | Clinical Summary ---
Author Organization [facility] Address [address] [place] [address] Care Team Providers Care Occupational Health And Safety Officer Name Role Phone Charles Campbell MD Primary Care Provider [phone] Allergies No known active allergies Medications Medication [...] 75 07/30/2021 9:19 AM EDT Temperature 35.8 C (96.4 F) 07/30/2021 9:19 AM EDT Respiratory Rate 15 07/30/2021 9:19 AM EDT [...] - PCV) 2023 COVID-19 Vaccine (4 - 2024-2 6 season) 2024 12/15/2020, 06/11/2020, 05/21/2020 Influenza Vaccine (#1) 2024 , 02/21/2020, 01/01/2018 RSV Adult > 60+ Yrs or (1 - 1-dose 75+ series) 2033 Hepatitis B Vaccines Aged Out No long er eligible based on patient's age to complete this topic RSV Ped < 20 months Aged Out No longe r eligible based on patient's age to complete this topic Care Teams Occupational Health And Safety Officer Relationship Specialty Start Date End Date Charles Campbell MD [address] [place] [address] [place] [address] PCP - [employer] 07/07/20
--- OUTSIDE RECORDS SUMMARY | 2025-01-29 16:30 | XMS_ITS | Encounter Summary ---
Author Organization [facility] Address [address] [place] [phone] Phone Care Team Providers Care Coal Conveyor Operator Name Role Phone Unavailable Primary Care Provider Unavailabl e Encounter Details Date Type Department Care Team (Late st Contact Info) Description 02/13/2021 Procedure Pass [facility], [address] [address] Social History Tobacco Use Types Packs/Day Years Used Date Smoking Tobacco: Never Smokeless Tobacco: Never Sex and Gender Information Value Date Recorded Sex Assigned at Male 11/21/2020 11:32 AM EDT Legal Sex Male 11:23 AM EDT Gender Identity Male 11/21/2020 11:32 AM EDT Sexual Orientation Straight 11/21/2020 11 :32 AM EDT documented as of this encounter Plan of Treatment Not on file documented as of this encounter Visit Diagnoses Not on filedocumented in this encounter Additional Health Concerns Infection Onset Date Last Indicated Resolved Time CoV-Presumed 06/20/2021 06/20/2021 07/11/2021 1:21 AM EDT Assessment Noted Time PHQ-2 Depression Total Score: 2 02/11/20 21 9:34 AM EST documented as of this encounter Additional Source Comments The information contained in this document represents components of the legal health record. It is not the complete legal health record.[facility]
--- OUTSIDE RECORDS SUMMARY | 2025-01-29 16:30 | XMS_ITS | Encounter Summary ---
Author Organization [facility] Address [address] [place] [phone] Phone Care Team Providers Care Tree Trimmer Helper Name Role Phone Unavailable Primary Care Provider Unavailabl e Encounter Details Date Type Department Care Team (Late st Contact Info) Description 03/03/2021 Ancillary Orders [facility],Outside Imaging [address] [place], [place] [id number] System, Provider Not In, [facility] [address] [address] Social History Tobacco Use Types Packs/Day Years [...] on file documented as of this encounter Results * XR SPINE OUTSIDE(NO INTERPRETATION) (02/20/2020 12:00 AM EST) Narrative SYSTEMGENERATED, DOCUMENTATION - 03/03/2021 8:53 AM EST This study is for PACS storage only and not for interpretation. us Provider Not In System PhD IMG OUTSIDE IMAGING W /OUT INTERPRETATION Final Result documented in this encounter Visit Diagnoses Not on filedocumented [...] It is not the complete legal health record.[facility]
--- OUTSIDE RECORDS SUMMARY | 2025-01-29 16:30 | XMS_ITS | Encounter Summary ---
Author Organization [facility] Address [address] [place] [address] Care Team Providers Care Carpenter/Labor Name Role Phone Charles Campbell MD Primary Care Provider [phone] Encounter Details Date Type Department Care Team (Late Contact Info) Description 01/04/2025 Results Follow-Up Gastroenterology - [address] [phone] Adrian Hendrickson MD [address] [place] [id number] Social History Tobacco Use Types Packs/Day Years [...] on file documented as of this encounter Plan of Treatment Upcoming Encounters Date Type Department Care Team (Late st Contact Info) Description 03/05/2025 2:10 PM EST Office Visit [facility] [address] [place] [address] Eitan Acevedo NP [address] [place] [address] [address] [place] [address] documented as of this encounter Goals Goal Patient Goal Type Associated Problems Recent Progress Patient-Stated? Author Autogenerat ed Goal Care Plan Autogenerated Problem No Caio Toussaint documented as of this encounter Visit Diagnoses Not on filedocumented in this encounter Additional Health Concerns Active Problems Noted Date Diagnosed Date Autogenerated Problem 12/05/2024 documented as of this encounter Care Teams Carpenter/Labor Relationship Specialty Start Date End Date Charles Campbell MD [address] [place] [address] [address] [place] [address] PCP - General Endocrinology 12/27/24 documented as of this encounter
--- OUTSIDE RECORDS SUMMARY | 2025-01-29 16:30 | XMS_ITS | Clinical Summary ---
Author Organization [facility] Address [address] [place] [phone] Phone Care Team Providers Care Seaweed Harvester Name Role Phone Unavailable Primary Care Provider Unavailabl e Allergies No known active allergies Medications buPROPion (WELLBUTRIN XL) 150 MG ER 24 hr tablet TAKE 1 TABLET (150 MG) BY MOUTH DAILY IN THE MORNING WITH ONE 300 MG TABLET 07/08/2020 Active buPROPion (WELLBUTRIN XL) 300 MG ER 24 hr tablet Take 1 tablet by mouth every morning. 09/06/2020 Active atorvastatin (LIPITOR) 40 MG tablet Take 40 mg by mouth daily. 06/12/2020 Active omeprazole (PRILOSEC) 40 MG capsule Take 40 mg by mouth daily. Active omeprazole (PRILOSEC) 20 MG capsuleIndicati ons:In the Evening Take 20 mg by mouth daily. Indications: In the Evening Active sildenafiL (VIAGRA) 25 mg tablet Take 25 mg by mouth daily as needed for erectile dysfunction. Active tamsulosin (FLOMAX) 0.4 mg Cap 01/07/2021 Active LORazepam (ATIVAN) 0.5 MG tablet Take 1 tablet (0.5 mg total) by mouth 2 (two) times a day. 02/13/2021 Active Active Problems Problem Noted Date Diagnosed Date Arthritis 10/28/2020 Chest pain at rest 03/31/2019 Hearing loss 05/29/2017 High cholesterol 02/28/2006 PTSD (post-traumatic stress disorder) 02/29/2000 GERD (gastroesophageal reflux disease) 5 Immunizations Immunization Administration Dates Next Due Influenza Quadrivalent Preservative Free IM 11/28,02/21/2020,01/01/2018 Social History Tobacco Use Types Packs/Day Years Used Date Smoking Tobacco: Never Smokeless Tobacco: Never Education Answer Date Recorded Are you interested in more education? Not on dillon e 06/26/2022 Are you concerned about learning? Not on file 06/26/2022 No 06/26/2022 No 06/26/2022 Digital Access Answer Date Recorded No 07/25/2022 No 07/25/2022 No 07/25/2022 Reliable internet access at home? Not on file 07/25/2022 Device with a working camera? Not on file Sex and Gender Information Value Date Recorded Sex Assigned at Male 11/21/2020 11:32 AM EDT Legal Sex Male 11:23 AM EDT Gender Identity Male 11/21/2020 11:32 AM EDT Sexual Orientation Straight 11/21/2020 11 :32 AM EDT Last Filed Vital Signs Vital Sign Reading Time Taken Comments Blood Pressure 139/87 11/30/2021 10:41 AM EDT Pulse 78 11/30/2021 10:41 AM EDT Temperature 36.4 C (97.5 F) 11/30/2021 10:41 AM EDT Respiratory Rate - - Oxygen Saturation 97% 11/30/2021 10:41 AM EDT Inhaled Oxygen Concentration - - Weight 73.5 kg (162 lb) 11/30/2021 10:41 AM EDT Height 170.2 cm (5' 7 ) 02/24/2021 2:07 PM EST Body Mass Index 25.37 02/24/2021 2:07 PM EST Plan of Treatment Health Maintenance Due Date Last Done Comments Adult Td,Tdap Booster 1958 LIPID PANEL 1958 HEPATITIS C SCREENING 1976 COLOGUARD 2003 COLONOSCOPY 2003 COLORECTAL CANCER SCREENING 2003 FIT TEST 2003 FOBT 2003 SIGMOIDOSCOPY 2003 VIRTUAL COLONOSCOPY 2003 PNEUMOCOCCAL VACCINES (50+ years) (1 of 1 - PCV) 2008 ZOSTER VACCINES (1 of 2) 2008 DEPRESSION SCREENING 02/10/2022 02/10/2021 INFLUENZA VACCINE (#1) 2024 , 02/21/2020, 01/01/2018 COVID-19 VACCINE (2024- season) 2024 11/13/2021, 12/15/2020, 06/11/2020, Additional history exists RSV VACCINE (1 - 1-dose 75+ series) 2033 SMOKING STATUS SCREENING (Once After 26 Yrs) Completed 07/21/2021 HEPATITIS A VACCINES Aged Out No long er eligible based on patient's age to complete this topic HIB VACCINES Aged Out No longer eligi ble based on patient's age to complete this topic MENINGOCOCCAL VACCINES (ACWY) Aged Out No longer eligible based on patient's age to complete this topic MENINGOCOCCAL VACCINES (B) Aged Out N o longer eligible based on patient's age to complete this topic Medical Devices Not on file Insurance [place] [address] [place] [address] [facility] [place] [address] [place], [place] [address]O POS [facility]PO [facility] [place] [address] [place], [place] [id number] POS EPO [address] [place], [place] [id number] POS EPO [facility] EPO Additional Source Comments The information contained in this document represents components of the legal health record. It is not the complete legal health record.[facility]
--- OUTSIDE RECORDS SUMMARY | 2025-01-29 16:30 | XMS_ITS | Clinical Summary ---
Author Organization Patient Business Ser [facility] [place] Address [address] [place] [address] Care Team Providers Care Events Administrative Assistant Name Role Phone Charles Campbell MD Primary Care Provider [phone] Allergies Active Allergy Reactions Criticality Noted Date Comments Metoprolol Succinate Hives,Itching,Other High 2024 Difficulty breathing Medications aspirin 81 mg EC tablet Take 1 tablet (81 mg total) by mouth 1 (one) time each day. Active buPROPion XL (FORFIVO XL) 450 mg 24 hr tablet Take 1 tablet (450 mg total) by mouth 1 (one) time each day. Do not crush, chew, or split. Active clonazePAM (KlonoPIN) 0.25 mg disintegrating tablet Dissolve 2 tablets (0.5 mg total) on top of the tongue 2 (two) times a day. Active atorvastatin (LIPITOR) 40 mg tablet Take 2 tablets (80 mg total) by mouth at bedtime. Active tamsulosin (FLOMAX) 0.4 mg 24 hr capsule Take 1 capsule (0.4 mg total) by mouth 2 (two) times a day. Capsules should be taken 30 minutes following the same meal each day. Active finasteride (PROSCAR) 5 mg tablet Take 1 tablet (5 mg total) by mouth 1 (one) time each day. Do not crush, chew, or split. Active naproxen (NAPROSYN) 250 mg tablet Take 1 tablet (250 mg total) by mouth 2 (two) times a day with meals. Active sildenafiL (VIAGRA) 25 mg tablet Take 1 tablet (25 mg total) by mouth 1 (one) time each day if needed for erectile dysfunction. Active albuterol HFA (PROAIR HFA ; PROVENTIL HFA ; VENTOLIN HFA) 90 mcg/actuation inhaler TAKE 2 PUFFS BY MOUTH 4 TIMES A DAY NEEDED 5 Active omeprazole (PriLOSEC) [address] capsuleIndications :GERD (gastroesophageal reflux disease) Take 1 capsule (20 mg total) by mouth 2 (two) times a day. 180 capsule 1 5 Active ezetimibe (ZETIA) 10 mg tablet Take 1 tablet (10 mg total) by mouth 1 (one) time each day. Active Active Problems Problem Noted Date Diagnosed Date Primary hypertension 11/12/2024 Assessment & Plan (11/12/2024 8:48 AM EDT): Elevated in office today. Side effects on metoprolol and amlodipine. Home readings have been generally controlled in the 130s over 70s. Will hold off on additional trials of medications for now. He is on sildenafil and therefore nitrates would be an issue. May consider trial of lisinopril in the future. Right bundle branch block 11/12/2024 Assessment & Plan (11/12/2024 8:48 AM EDT): Noted on today's EKG. No evidence of high-grade conduction disease. Lo's esophagus 10/25/2024 Assessment & Plan (10/25/2024 8:51 AM EDT): 3-year recall EGD for dysplasia surveillance Book EGD Upper Endoscopy: Discussed with patient indications for procedure as well as risks of bleeding, infection, risk of perforation and reaction to anesthesia. Patient is aware of risk of missed lesions. Patient understands and would like to proceed. Alternatives to endoscopic evaluation discussed. Benefit of procedure for screening, diagnostic and therapeutic purposes discussed. The patient acknowledges risks, benefits and alternatives and all questions are answered. Patient is to follow up after the procedure for biopsy results General: Patient aware needs a ride home Not to have liquids for at least two hours before procedure. Other chest pain 05/14/2024 Assessment & Plan (05/14/2024 10:08 AM EDT): Atypical chest discomfort although in context of prior diagnosis of (branch vessel CAD) I would like to evaluate further with a exercise nuclear stress test. Mechanical characteristics of the chest discomfort are higher suggestive of a GI etiology. He does have a diagnosis of cervical radiculopathy which possibly could contribute although I would like to fully evaluate for cardiac concerns first. Coronary artery disease invo lving [place] coronary artery of [place] heart without angina pectoris 05/14/2024 Overview (11/12/2024): CT Coronary completed May 2019 which showed an occlusion of the left circumflex about 1.5 cm after the take off of the first obtuse marginal branch. The LMCA, LAD and RCA are patent. ETT completed 06/07/24; patient exercised for 7 min and 7 sec, he experienced chest pain at stage 3, depression noted to ST segment (V3, V4, V5 and V6) of 2.0 mm during stress, ST deviation returned to baseline after 5-9 minutes of recovery. TRANSTHORACIC ECHOCARDIOGRAM (TTE) COMPLETE (CONTRAST/BUBBLE/3D PRN) 07/25/2024 07/25/2024 Interpretation Summary Left ventricle cavity size is normal. Wall thickness is normal. Systolic function is normal with an ejection fraction of 60-65%. There are no regional LV wall motion abnormalities No hemodynamically significant valvular dysfunction Compared to prior study from 2019, the previously described regional wall motion abnormalities are no longer evident Assessment & Plan (11/12/2024 8:48 AM EDT): Coronary CTA demonstrated FLANGING ROLL OPERATOR of the left circumflex with patent residual vessels. ETT in May 2024 showed angina at higher levels of exertion with suggestive EKG changes. Echocardiogram showed preserved left ventricular systolic function with no regional wall motion abnormalities. The patient has stable predictable angina at high levels of exertion. He has made major lifestyle changes and is lost weight as well as made efforts to reduce his stress levels. His blood pressures are generally controlled at home. He has had reactions to both metoprolol and amlodipine. At this time we will stay the course and evaluate his symptom burden in three months with no changes. We did review potential options of additional medication trials as well as a diagnostic angiogram in the future. He is aware to contact our office in the meantime with any worsening angina. Continue with aspirin and atorvastatin. We discussed risk reduction through lifestyle choices including healthy diet, routine exercise and weight management. Orders: ECG 12 lead Assessment & Plan (05/14/2024 10:10 AM EDT): Circumflex branch vessel FLANGING ROLL OPERATOR based on prior coronary CTA. Continue low-dose of aspirin definitely. Continue statin therapy with a goal LDL of less than 70. Blood pressure goal less than 130/80. He does have an element of whitecoat hypertension and at home when monitoring his blood pressure it has been acceptable. I recommended continue to monitor in the office and at home and if we consistently see elevated blood pressures then we could consider adding antihypertensive therapy Echocardiogram from around 5 years ago did suggest a regional wall motion abnormality. I recommended a repeat echocardiogram to evaluate cardiac structure and function. Benign prostatic hyperplasia 08/30/2022 Elevated liver enzymes 08/30/2022 Prediabetes 07/29/2021 Arthritis 10/28/2020 Acute medial meniscus tear of left knee 10/24/19 21 Allergic rhinitis 01/05/2019 Overview (10/22/2024): Other allergic rhinitis; Note: Date Diagnosed: 01/05/2019 8:58 AM (J30.89) Sensorineural hearing loss (SNHL) of both ears 0 06/10/2017 Overview (10/22/2024): Sensorineural hearing loss, bilateral; Note: Date Diagnosed: 06/10/2017 9:28 AM (H90.3) Hearing loss 05/29/2017 Hypercholesterolemia 02/28/2006 Assessment & Plan (11/12/2024 8:48 AM EDT): Continue with atorvastatin. PTSD (post-traumatic stress disorder) 02/29/2000 Gastroesophageal reflux disease 02/28/1974 Encounters Date Type Department Care Team Description 01/09/2025 Telephone [facility] [address] [place] [address] Eitan Acevedo NP 01/04/2025 Results Follow-Up Gastroenterology - [address] [place] [address] Adrian Hendrickson MD 01/03/2025 11:33 AM EST Anesthesia Event [facility] Endoscopy [address] [place] [phone] Juan Eddy DO 01/03/2025 9:26 AM EST - 01/03/2025 11:59 PM EST Hospital Encounter [facility] Endoscopy [address] [place] [address] Adrian Hendrickson MD Claudio, Raymund, CRNA GERD (gastroesophageal reflux disease); Lo's esophagus without dysplasia Discharge Disposition: Home or Self Care 01/01/2025 Telephone [facility] [address] [place] [address] Theo Shen MD 11/22/2024 Telephone Gastroenterology - [address] [facility] [address] [facility] [address] [place] [phone] Adrian Hendrickson MD 11/12/2024 8:10 AM EDT Office Visit [facility] [address] [place] [address] Eitan Acevedo NP Coronary artery disease involving [place] coronary artery of [place] heart without angina pectoris (Primary Dx); Hypercholesterolemia ; Primary hypertension; Right bundle branch block from Last 3 Months Surgical History Surgery Date Site/Laterality Comments LIPOMA RESECTION 2001 PROCEDURE:LIPOMA RESECTION;COMMENT:ON ABDOMEN COLONOSCOPY 02/03/2016 HPx1 10 yr recall TOTAL KNEE ARTHROPLASTY Medical History Medical History Date Comments Hypercholesteremia [...] Date Smoking Tobacco: Never Smokeless Tobacco: Never Tobacco Cessation:Counseling Given: Not Answered Alcohol Use Standard Drinks/Week Comments Yes 2 (1 standard drink = 0.6 oz pur e alcohol) rare Sex and Gender Information Value Date Recorded Sex Assigned at Not on file Legal Sex Male 2:47 AM EST Gender Identity Not on file Sexual Orientation Not on file Obstetrics History Last Filed Vital Signs Vital Sign Reading Time Taken Comments Blood Pressure 139/77 01/03/2025 12:03 PM EST Pulse 55 01/03/2025 12:03 PM EST Temperature 36.7 C (98.1 F) 01/03/2025 11:43 AM EST Respiratory Rate 16 01/03/2025 12:03 PM EST Oxygen Saturation 93% 01/03/2025 12:03 PM EST Inhaled Oxygen Concentration - - Weight 74.8 kg (165 lb) 01/03/2025 10:30 AM EST Height 170.2 cm (5' 7 ) 01/03/2025 10:30 AM EST Body Mass Index 25.84 01/03/2025 10:30 AM EST Plan of Treatment Upcoming Encounters Date Type Department Care Team (Late st Contact Info) Description 03/05/2025 2:10 PM EST Office Visit [facility] [address] [place] [phone] Eitan Acevedo NP [address] [place] [address] [address] [place] [phone] Health Maintenance Due Date Last Done Comments DTaP,Tdap,and Td Vaccines (1 - Tdap) 1977 Pneumococcal Vaccine: 50+ Years (1 of 1 - PCV) 2008 Cholesterol Screening (Lipid Panel) 02/05/2022 Hepatitis C Screening 02/05/2022 Social Influencers of Health Screening 02/05/2022 Falls Risk Assessment 2023 Depression Screening 02/29/2024 Hypertension/CHF/CAD Annual BMP Blood Test 05/14/2024 COVID-19 Vaccine ( season) 2024 01/01/2024, 03/02/2023, 11/13/2021, Additional history exists Influenza Vaccine (#1) 2024 , 12/15/2020, 02/21/2020, Additional history exists RSV Immunization Adult Patients (1 - 1-dose 75+ series) 2033 Colorectal Cancer Screening: Colonoscopy 10/24/2034 10/24/2024, 10/24/2024 Zoster Vaccines Completed 01/01/2024, 03/07/2023 HIB Vaccines Aged Out No longer eligi [...] patient's age to complete this topic Meningococcal B Vaccine Aged Out No l onger eligible based on patient's age to complete this topic RSV Immunization Patients Under 20 months Aged Out No longer eligible based on patient's age to complete this topic Varicella Vaccines Aged Out No longer eligible based on patient's age to complete this topic Goals Goal Patient Goal Type Associated Problems Recent Progress Patient-Stated? Author Autogenerat ed Goal Care Plan Autogenerated Problem No Caio Toussaint Procedures Procedure Name Priority Date/Time Associated Diagnosis Comments EGD Routine 01/03/2025 11:42 AM EST GERD (gastroesophageal reflux disease) Lo's esophagus without dysplasia TISSUE EXAM Routine 01/03/2025 11:39 AM EST GERD (gastroesophageal reflux disease) Lo's esophagus without dysplasia ECG 12-LEAD Routine 11/12/2024 8:48 AM EDT Coronary artery disease involving [place] coronary artery of [place] heart without angina pectoris EXTERNAL COLONOSCOPY REPORT Routine 10/24/2024 3:13 PM EDT from Last 3 Months or Most Recently Relevant to Health Maintenance Results * EGD Anesthesia - MAC; [facility] ENDOSCOPY (01/03/2025 11:42 AM EST) Anatomical Region Laterality Modality Endoscopy 01/03/2025 11:2 1 AM EST Impressions 01/03/2025 11:43 AM EST - Esophageal mucosal changes secondary to established short-segment Lo's disease. Biopsied. - Normal stomach. - Normal examined duodenum. Recommendation: - Await pathology results. - Repeat upper endoscopy in 3 years for surveillance. Narrative 01/03/2025 11:43 AM EST [facility] GI Patient Name: Lonnie See Procedure Date: 01/03/2025 11:21 AM Date of : 1960 Age: 64 Room: ROOM 16 Gender: Male Note Status: Finalized Attending MD: Adrian Hendrickson MD, Procedure Date No Time: 01/03/2025 Procedure: Upper GI endoscopy Indications: Surveillance for malignancy due to personal history of Lo's esophagus Providers: Adrian Hendrickson MD Referring MD: Adrian Hendrickson MD Medicines: Propofol per Anesthesia Complications: No immediate complications. Estimated Blood Loss: Estimated blood loss was minimal. Procedure: Pre-Anesthesia Assessment: - ASA Grade Assessment: II - A patient with mild systemic disease. After obtaining informed consent, the endoscope was passed under direct vision. Throughout the procedure, the patient's blood pressure, pulse, and oxygen saturations were monitored continuously.The Endoscope was introduced through the mouth, and advanced to the second part of duodenum. The upper GI endoscopy was accomplished without difficulty. The patient tolerated the procedure well. Findings: There were esophageal mucosal changes secondary to established short-segment Lo's disease present in the distal esophagus. The maximum longitudinal extent of these mucosal changes was 0.6 cm in length. Biopsies were taken with a cold forceps for histology. The exam of the esophagus was otherwise normal. The stomach was normal. The examined duodenum was normal. Procedure Code(s): --- Professional --- 71591, Esophagogastroduodenoscopy, flexible, transoral; with biopsy, single or multiple Diagnosis Code(s): --- Professional --- K22.70, Lo's esophagus without dysplasia CPT copyright 2020 [employer]. All rights reserved. The codes documented in this report are preliminary and upon physician underwriter review may be revised to meet current compliance requirements. Adrian Hendrickson MD 01/03/2025 11:43:19 AM This report has been signed electronically.Adrian Hendrickson MD Number of Addenda: 0 Note Initiated On: 01/03/2025 11:21 AM Scope In: Scope Out: Endoscopy Department at [facility] - [address] [place] [phone] Procedure Note Adrian Hendrickson MD - 01/03/2025 [facility] GI Patient Name: Lonnie See Procedure Date: 01/03/2025 11:21 AM Date of : 1960 Age: 64 Room: ROOM 16 Gender: Male Note Status: Finalized Attending MD: Adrian Hendrickson MD, Procedure Date No Time: 01/03/2025 Procedure: Upper GI endoscopy Indications: Surveillance for malignancy due to personal historyof Lo's esophagus Providers: Adrian Hendrickson MD Referring MD: Adrian Hendrickson MD Medicines: Propofol per Anesthesia Complications: No immediate complications. Estimated Blood Loss: Estimated blood loss was minimal. Procedure: Pre-Anesthesia Assessment: - ASA Grade Assessment: II - A patient with mild systemic disease. After obtaining informed consent, the endoscope was passed under direct vision. Throughout theprocedure, the patient's blood pressure, pulse, and oxygen saturations were monitored continuously.TheEndoscope was introduced through the mouth, and advanced tothe second part of duodenum. The upper GI endoscopy was accomplished without difficulty. The patienttolerated the procedure well. Findings: There were esophageal mucosal changes secondary to established short-segment Lo's disease presentin the distal esophagus. The maximum longitudinalextent of these mucosal changes was 0.6 cm in length. Biopsies were taken with a cold forceps forhistology. The exam of the esophagus was otherwise normal. The stomach was normal. The examined duodenum was normal. Procedure Code(s): --- Professional --- 98287, Esophagogastroduodenoscopy, flexible, transoral; with biopsy, single or multiple Diagnosis Code(s): --- Professional --- K22.70, Lo's esophagus without dysplasia CPT copyright 2020 [employer]. All rights reserved. The codes documented in this report are preliminary and upon physician underwriter reviewmay be revised to meet current compliance requirements. Adrian Hendrickson MD 01/03/2025 11:43:19 AM This report has been signed electronically.Adrian Hendrickson MD Number of Addenda: 0 Note Initiated On: 01/03/2025 11:21 AM Scope In: Scope Out: Endoscopy Department at [facility] - [address] [place] [phone] IMPRESSION: - Esophageal mucosal changes secondary to established short-segment Lo's disease. Biopsied. - Normal stomach. - Normal examined duodenum. Recommendation: - Await pathology results. - Repeat upper endoscopy in 3 years forsurveillance. Adrian Hendrickson MD GI~PROCEDURE ORDERABLES Fin al Result * Tissue exam (01/03/2025 11:39 AM EST) Final Diagnosis A. Esophagus, mid. esophagus biopsies: - Lo's mucosa. - Negative for dysplasia. 01/04/2025 8:21 AM EST [facility] at 0821 EST Gross Description A. Esophagus, mid. esophagus biopsies: Labeled esophagus mid . Received in formalin are two irregular weiner-pink mucosal tissue fragments, each measuring approximately 0.3 cm in greatest dimension, which are wrapped in paper and submitted in toto in one cassette, two pieces, multiple levels on one side. SELAM 01/04/2025 8:21 AM [facility] Disclaimer Unless otherwise specified, all tissue is 10% NB formalin fixed and paraffin embedded. 01/04/2025 8:21 AM [facility] Tissue Esophageal structure / Unknown 01/03/2025 11:39 AM EST 01/03/2025 1:50 PM EST us Adrian Hendrickson MD LAB PATHOLOGY ORDERABLES Fi nal Result [facility] [address] [place] [address], * ECG 12 lead (11/12/2024 8:48 AM EDT) Ventricular Rate ECG 70 BPM GEMUSE Atrial Rate 70 BPM GEMUSE P-R Interval 160 ms GEMUSE QRS Duration 120 ms GEMUSE Q-T Interval 412 ms GEMUSE QTc 444 ms GEMUSE P Wave [place] 60 degrees GEMUSE R [place] 23 degrees GEMUSE T [place] 22 degrees GEMUSE ECG Interpretation Normal sinus rhythm Right bundle branch block Abnormal ECG When compared with ECG of 14-MAY-2024 08:54, Right bundle branch block is now Present Confirmed by Kelsie SAUCEDA JAMES ([id number]) on 11/12/2024 12:38:06 PM GEMUSE 11/12/2024 8:14 AM EDT 11/12/2024 12:38 PM EDT Eitan Acevedo [employer] ECG ORDERABLES Edited Resu lt - Final GEMUSE * External Colonoscopy Report (10/24/2024 3:13 PM EDT) Anatomical Region Laterality Modality Endoscopy Historical Provider GI~PROCEDURE ORDERABLES F inal Result from Last 3 Months or Most Recently Relevant to Health Maintenance Additional Health Concerns Active Problems Noted Date Diagnosed Date Autogenerated Problem 12/05/2024 Insurance MEDICARE [employer] Care Teams Events Administrative Assistant Relationship Specialty Start Date End Date Charles Campbell MD [address] [facility] [address] [place] [address] PCP - General Endocrinology 12/27/24
== END 2025-01-29 15:30 | disposition home or self-care (01) ==
LOC: HO.HUSH 14:32
PROVIDERS: PCP Internal Medicine Endocrinology, Diabetes & Metabolism; Visit Provider Urology
DX: N52.9 Male erectile dysfunction, unspecified (principal); N41.9 Inflammatory disease of prostate, unspecified
CPT/HCPCS: 98013